=== PATIENT | female | born 1990 | race Caucasian/White ===

== ENCOUNTER 2020-12-02 11:18 | Emergency (ER) | payer OTHER, SELFPAY ==
[2020-12-02 11:35] VITALS: BP 133/83; PULSE 70; RESP 18; TEMP 36.4; O2SAT 100; BMI 44.1
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
[2020-12-02] MEDS: Cyclobenzaprine HCl 10 MG TABLET PO (12:17)
[2020-12-02] MEDS: Acetaminophen 325 MG TABLET 975 MG PO (12:18)
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
[2020-12-02 12:28] LABS: Glucose Urine UA NEG (NEG); Leukocyte Esterase Urine NEG (NEG); Nitrite Urine POS (NEG); PH 7.5 (5.0-8.0); Specific Gravity - Urine 1.015 (1.005-1.025); Urine Blood TRACE (NEG); Urine Ketones NEG (NEG); Urine Protein TRACE MG/DL (NEG-TRACE)
[2020-12-02 12:45] LABS: Appearance Urine HAZY; Color Urine YELLOW
[2020-12-02 12:54] LABS: Amorphous Sediment Urine TRACE /LPF; Bacteria Urine 3+ /LPF; Mucus Urine 2+ /LPF; RBC Urine 0 /HPF (0); Squamous Epithelial Cell Urine 2+ /LPF
[2020-12-02 12:55] LABS: UPreg QC Valid YES; Urine Pregnancy NEGATIVE (NEGATIVE)
== END 2020-12-02 14:22 | disposition home or self-care (01) ==
PROVIDERS: Physician Assistant Medical; Emergency Provider Emergency Medicine Emergency Medical Services
DX: S13.120A Subluxation of C1/C2 cervical vertebrae, initial encounter (principal); S06.0X0A Concussion without loss of consciousness, initial encounter; S29.011A Strain of muscle and tendon of front wall of thorax, initial encounter; M25.512 Pain in left shoulder; N30.00 Acute cystitis without hematuria; M54.2 Cervicalgia; G44.319 Acute post-traumatic headache, not intractable; G44.309 Post-traumatic headache, unspecified, not intractable; R07.89 Other chest pain; V43.52XA Car driver injured in collision with other type car in traffic accident, initial encounter; Y93.9 Activity, unspecified; Y92.410 Unspecified street and highway as the place of occurrence of the external cause; Y99.9 Unspecified external cause status; Z79.899 Other long term (current) drug therapy
CPT/HCPCS: 70450; 71046; 72125; 73030; 81001; 81025; 87086; 99284

== ENCOUNTER 2022-09-25 10:46 | Outpatient (REF) | payer OTHER, SELFPAY ==
[2022-09-25 10:55] LABS: MANUAL DIFF FLAG NO
[2022-09-25 11:34] LABS: Basophils Percent Auto 0.3 % (0-2); Eosinophils Absolute Auto 0.2 X10*3/uL (0.0-0.4); Eosinophils Percent Auto 2.8 % (0-4); Hematocrit 34.9 % (37.0-47.0); Hemoglobin 11.5 g/dl (12.0-16.0); Imm Gran Abs Auto 0.01 X10*3/uL (0.00-0.03); Imm Gran Pct Auto 0.1 % (0.0-0.4); Lymphocytes Absolute Auto 1.8 X10*3/uL (1.2-4.9); Lymphocytes Percent Auto 24.5 % (20-40); Mean Corpuscular Hemoglobin 28.3 pg (27.0-33.0); Mean Corpuscular Volume 85.7 fL (80.0-98.0); Mean Platelet Volume 9.8 fL (9.4-12.3); Monocytes Absolute Auto 0.6 X10*3/uL (0.1-1.2); Monocytes Percent Auto 8.4 % (2-11); Neutrophils Absolute Auto 4.8 x10*3/uL (2.0-8.3); Neutrophils Percent Auto 63.9 % (45-73); Platelet Count 290 X10*3/uL (160-400); Red Blood Count 4.07 X10*6/uL (4.20-5.50); Red Cell Distribution Width 13.1 % (11.0-16.0); White Blood Count 7.5 X10*3/uL (4.8-10.8)
[2022-09-25 12:09] LABS: Alanine Aminotransferase 21 U/L (0-31); Alkaline Phosphatase 61 U/L (39-117); Anion Gap 14 (12-20); Aspartate Amino Transferase 23 U/L (5-31); Bilirubin Total 0.4 mg/dL (0.0-1.0); Blood Urea Nitrogen 14 mg/dL (9-16); Calcium 8.9 mg/dL (8.4-10.2); Carbon Dioxide 24 mmol/L (22-29); Chloride 108 mmol/L (96-108); Estimated Glomerular Filt Rate > 60; Glucose Fasting 85 mg/dL (60-99); Potassium 4.4 mmol/L (3.3-5.1); Sodium 142 mmol/L (135-145); Total Protein 7.3 g/dL (6.5-8.0)
[2022-09-25 12:34] LABS: TSH reflex Free T4 1.71 uIU/mL (0.32-4.0); Vitamin D 25-OH Total 12.1 ng/mL (>30)
[2022-09-25 12:57] LABS: Folate 8.2 ng/mL (> or = 4.0); Vitamin B12 405 pg/mL (200-900)
== END 2022-09-25 10:47 | disposition home or self-care (01) ==
LOC: HO.LAB 10:46
PROVIDERS: PCP Internal Medicine; Visit Provider Nurse Practitioner Family
DX: Z00.00 Encounter for general adult medical examination without abnormal findings (principal)
CPT/HCPCS: 36415; 80053; 82306; 82607; 82746; 84443; 85025

== ENCOUNTER → 2022-10-16 11:13 | Outpatient (BNVA) | payer OTHER, SELFPAY | PROVIDERS: PCP Internal Medicine; Referring Provider Internal Medicine; Visit Provider Physician Assistant | DX: Z01.818 Encounter for other preprocedural examination (principal); E66.01 Morbid (severe) obesity due to excess calories; D64.9 Anemia, unspecified; Z68.43 Body mass index [BMI] 50.0-59.9, adult | CPT/HCPCS: 99202 ==

== ENCOUNTER 2023-10-02 09:54 | Outpatient (REF) | payer OTHER, SELFPAY ==
[2023-10-04 18:08] LABS: TS Negative Control Passed; TS Panel A 0; TS Panel B 0; TS Positive Control Passed; TSpotTB Negative (Negative)
== END 2023-10-02 09:55 | disposition home or self-care (01) ==
LOC: HO.LAB 09:54
PROVIDERS: PCP Internal Medicine; Visit Provider Internal Medicine
DX: Z11.1 Encounter for screening for respiratory tuberculosis (principal)
CPT/HCPCS: 36415; 86481

== ENCOUNTER 2023-10-23 15:00 | Outpatient (AMB) | payer OTHER, SELFPAY ==
--- NOTE | 2023-10-23 15:02 | A.OFFPC_ITS ---
Vital Signs 10/23/23 15:04 Height 5 ft 8 in Weight 360 lb BMI 54.7 BP 152/80 H Blood Pressure Location Lt brachial Position Sitting Intake Visit Reasons: PE+ NEEDS PHQ9+ THRIVE Intake Note: Patient here for a physical exam Clinical Rn Manager Required: No Accompanied by: Self / Same As Patient Allergies No Known Allergies Allergy (Verified 10/23/23 15:23) Medication List - Last Reconciled 10/23/23 by Yeny Chapa MD [IUD vaginal] Tobacco use date assessed: 10/23/23 Dental Screening Dental Screen Date: 10/23/23 Did you have a dental visit in the last 12 months?: No Did you have a dental problem in the last 6 months where you did not have access to dental care?: No Was dental information given to patient?: Patient has dentist HPI HPI Comments History of Present Illness Details This is a 33-year-old female with morbid obesity that comes for her physical exam. Her BMI is 54.7 and she was and role in weight management but stopped going. I recommend to restarted. She will think about it. Last Pap smear was 2022 at [facility] and was normal. Elevated blood pressure today that will be recheck by nurse navigator in 3 weeks. No chest pain or shortness of breath PFSH Medical History Body rash Tests ordered Physical exam Surgical History Hx of tooth extraction History of section Family History Father No problems noted. Mother No problems noted. Maternal Grandmother Diabetes Breast cancer Social History Housing: Apartment Alcohol intake: current Alcohol intake frequency: a few times a week Patient Tobacco Use Status: Current everyday Tobacco user Tobacco use type: Cigarette Cigarettes Per Day: 4 e-Cigarette/Vaping Use: Never Used Second Hand Smoke Exposure: No service: No Current occupational status: employed Current occupational exposures/hazards: No Cognitive needs: No Hearing needs: No Vision needs: No Questionnaire PHQ-9 Over the last 2 weeks, how often have you been bothered by any of the following problems? 1. Little interest or pleasure in doing things: not at all 2. Feeling down, depressed, or hopeless: not at all 3. Trouble falling or staying asleep, or sleeping too much: not at all 4. Feeling tired or having little energy: not at all 5. Poor appetite or overeating: not at all 6. Feeling bad about yourself - or that you are a failure or have let yourself or your family down: not at all 7. Trouble concentrating on things, such as reading the newspaper or watching television: not at all 8. Moving or speaking so slowly that other people could have noticed. Or the opposite - being so fidgety or restless that you have been moving around a lot more than usual: not at all 9. Thoughts that you would be better off or of hurting yourself in some way: not at all Total score: 0 Depression Screening Interpretation: Negative Depression Screening Done: Yes 16338 - PHQ-9 Billing: Yes Source: Developed by Drs. Glynn Huffman, Nena Craft, Marquis Ram and colleagues, with an educational dane from [employer] Thrive Questionnaire Date Thrive assessed: 10/23/23 I am a: Patient What is your living situation today?: I have a steady place to live Within the past 12 months, did the food you bought not last and you didn't have the money to get more?: Never true Within the past 12 months, did you worry whether your food would run out before you got money to buy more?: Never true Do you have trouble paying for medicines?: No Do you have trouble getting transportation to medical appointments?: No Do you have trouble paying your heating and electricity bill?: No Do you have trouble taking care of your child, family member or friend?: No Do you have trouble with day-to-day activities such as bathing, preparing meals, shopping, managing finances, etc.?: No Are you currently unemployed and looking for a job?: No Are you interested in more education?: No Please select the resources that you would like help with: None Currently or been in a relationship where the following occur: no concerns reported AUDIT C Alcohol Use Questionnaire (AUDIT-C) 1. How often do you have a drink containing alcohol?: 2-3 times a week 2. How many drinks containing alcohol do you have on a typical day when you are drinking?: 3 or 4 3. How often do you have six or more drinks on one occasion?: Never Total Score: 4 Score Reviewed/Action Taken: Yes JINA-7 AMB Questionnaire JINA-7 Date JINA - 7 assessed: 10/23/23 Feeling nervous, anxious, or on edge: 0 = Not at all Not being able to stop or control worryin = Not at all Worrying too much about different things: 0 = Not at all Trouble relaxin = Not at all Being so restless that it is hard to sit still: 0 = Not at all Becoming easily annoyed or irritable: 0 = Not at all Feeling afraid as if something awful might happen: 0 = Not at all Total JINA-7 score (0-4 normal; 5-9 mild; 10-14 moderate; 15-21 severe): 0 Source: Developed by Drs. Glynn Huffman, Nena Craft, Marquis Ram and colleagues, with an educational dane from [employer] JINA-7 Assessment Billing JINA-7 Assessment Tool: JINA-7 Assessment 69665 Review of Systems Const All systems reviewed & are unremarkable except as noted in HPI and below Eyes Reports no additional complaints, Denies change in vision and Denies other visual disturbances Card Denies chest pain at rest, Denies chest pain with activity, Denies edema, Denies irregular heart rhythm, Denies claudication, Denies dyspnea, Denies dyspnea on exertion, Denies orthopnea, Denies paroxysmal nocturnal dyspnea and Denies slow heart rate Resp Denies cough, Denies dyspnea and Denies dyspnea on exertion GI Denies abdominal pain, Denies change in bowel habits, Denies excessive flatus, Denies nausea and Denies vomiting Denies urinary incontinence, Denies urinary hesitancy and Denies urinary urgency Musc Denies abnormal gait, Denies atrophy, Denies deformity and Denies limited range of motion Skin/Breast Denies bleeding lesions, Denies changing lesions and Denies rash Neuro Denies abnormal gait and Denies lack of coordination Tyree/Lymph Denies easy bleeding Physical exam (Primary Care) Vital Signs: Last Vital Signs BP 152/80 H 10/23/23 15:04 BMI result Body Mass Index 54.7 Tobacco/Smoking Status: Tobacco use Status Tobacco use date assessed 10/23/23 10/23/23 15:12 Patient Tobacco Use Status Current everyday Tobacco 10/23/23 15:06 Tobacco use type Cigarette 10/23/23 15:12 e-Cigarette/Vaping Use Never Used 10/23/23 15:06 PHQ-9: PHQ-9 Score PHQ-9: Total score 0 10/23/23 15:39 Depression Screening Interpretation: Negative Thrive Assessment: Date of Thrive Assessment Date Thrive assessed 10/23/23 10/23/23 15:06 Currently or been in a relationship where the following occur: no concerns reported Const Orientation/consciousness: patient oriented x3 HENMT Head: Yes normal to inspection, Yes normocephalic and Yes atraumatic Ears: external ears normal Eyes General: appearance normal, both eyes and all related structures Eyelids: Yes eyelids normal Conjunctivae: conjunctivae normal Neck Neck: Yes normal visual inspection and Yes supple Resp Effort & Inspection: normal respiratory effort Auscultation: clear to auscultation bilaterally Cardio Jugular venous distension: no JVD Rate: regular rate Rhythm: regular rhythm Heart sounds: S1 normal heart sound present and S2 normal heart sound present GI Inspection: Yes normal to inspection Palpation (GI): Soft to palpation and nontender Auscultation: normal bowel sounds Skin General skin exam: no rashes or lesions noted Neuro General: patient oriented x3 and no focal motor deficits Extrem General: Yes full ROM Psych Appearance: grossly normal Office Procedures Flu Questionnaire Does the patient have a severe egg allergy?: No Does the patient have severe life threatening allergies?: No Does the patient have a fever or illness today?: No Has the patient ever had Guillain-Felda Syndrome?: No Has the patient ever had any past reaction to a flu shot?: No Immunizations flu vacc [id number] 6mos up(PF) 60 mcg(15 mcgx4)/0.5 mL IM syringe Performing Provider: Yeny Chapa MD Performing [facility] [place] [facility] Administered by: NAEL Taylor on 10/23/23 15:39 Dose Route Admin Location Dispensed Lot Number Expiration Date NDC Manager Program Management 0.5 mL IM Right Deltoid 0.5 mL [id number] 05/18/24 [id number] [employer] VIS Given Date VIS Provided VIS Publication Date 10/23/23 Single Vaccine 21 Eligibility Eligibility Date Funding Source Not [facility] Eligible 10/23/23 Private Assessment and Plan Assessment & Plan (1) Physical exam: Code(s): Z00.00 - Encounter for general adult medical examination without abnormal findings Plan: Repeat in a year. (2) Morbid obesity with BMI of 50.0-59.9, adult: Code(s): E66.01 - Morbid (severe) obesity due to excess calories; Z68.43 - Body mass index [BMI] 50.0-59.9, adult Plan: Consider returning to weight management. BMI goal is less than 30. Orders: Orders Lipid Panel Today Z00.00 - Encounter for general adult medical examination without abnormal findings Influenza [id number] Immunization Today Z23 - Encounter for immunization Vitamin D 25-OH Total Today E55.9 - Vitamin D deficiency, unspecified Comprehensive [place]. Panel Fast Today Z00.00 - Encounter for general adult medical examination without abnormal findings Coding Level of Care Code Est Pt Prev Care [id number]) Diagnoses Physical exam Z00.00 Morbid obesity with BMI of 50.0-59.9, adult E66.01; Z68.43 Additional Codes JINA-7 Assessment Billing - JINA-7 Assessment Tool: JINA-7 Assessment [id number] ([id number]) Time Spent (min) 33
[2023-10-23 15:04] VITALS: BP 152/80; BMI 54.7
== END 2023-10-23 15:41 | disposition home or self-care (01) ==
PROVIDERS: Visit Provider Internal Medicine
DX: Z00.00 Encounter for general adult medical examination without abnormal findings (principal); E66.01 Morbid (severe) obesity due to excess calories; Z68.43 Body mass index [BMI] 50.0-59.9, adult; Z23 Encounter for immunization
CPT/HCPCS: 90471; 90686; 99395

== ENCOUNTER 2024-01-17 09:01 | Emergency (ER) | payer OTHER, SELFPAY ==
[2024-01-17 09:38] VITALS: BP 149/94; PULSE 76; RESP 20; TEMP 36.8; O2SAT 100; BMI 55.6
--- NOTE | 2024-01-17 10:13 | ECG_ITS ---
Test Reason : HTN Blood Pressure : / mmHG Vent. Rate : 071 BPM Atrial Rate : 071 BPM P-R Int : 192 ms QRS Dur : 094 ms QT Int : 382 ms P-R-T Axes : 016 038 007 degrees QTc Int : 415 ms Normal sinus rhythm Normal ECG No previous ECGs available Referred By: Ted Uriarte Electronically Signed By:QUINTEN MOORE
--- NOTE | 2024-01-17 10:31 | ED_ITS ---
HPI - General Adult General Chief complaint: Headache Stated complaint: High BP, headache Time Seen by Provider: 01/17/24 10:13 Source: patient Mode of arrival: ambulatory Limitations: no limitations History of Present Illness HPI narrative: 33-year-old female history of obesity, anemia, presents to the emergency department with concerns that her blood pressure is high, patient reports she purchase a blood pressure machine for home, she tried it once her blood pressure was 212/138 this was yesterday she took it again today and she thinks it was also elevated. She reports that she went to her primary care provider who advised her to check her blood pressure at home as her blood pressure was borderline high at her PCP appointment, she reports when she saw these values she panicked she started having a headache. She started feeling anxious however she does not have a history of anxiety. She continued to check in it remained high. Today she tells me she is asymptomatic does not have headache, vision changes, dizziness, weakness, nausea, vomiting, abdominal pain. She tells me she has some chest pressure however and she does not know if it is because of anxiety. No shortness of breath. Denies fevers and chills. NIH stroke scale 0. Related Data Home Medications Medication Instructions Recorded Confirmed IUD vaginal 09/25/22 10/23/23 Allergies Allergy/AdvReac Type Severity Reaction Status Date / Time No Known Allergies Allergy Verified 01/17/24 09:38 Review of Systems 2 Review of Systems: Yes all other systems are reviewed and are negative ON LICENSE OF [facility] Past Medical History Attestation statement: The following information was validated with the patient. Source: old records reviewed and nursing notes reviewed Medical History Body rash Tests ordered Physical exam Surgical History Hx of tooth extraction History of section Family History Family History Father No problems noted. Mother No problems noted. Maternal Grandmother Diabetes Breast cancer Social History Social History Housing: Apartment Alcohol intake: current Alcohol intake frequency: a few times a week Patient Tobacco Use Status: Current everyday Tobacco user Tobacco use type: Cigarette Cigarettes Per Day: 4 e-Cigarette/Vaping Use: Never Used Second Hand Smoke Exposure: No Advance Directives: No Advance Directives Information Provided: No service: No Current occupational status: employed Current occupational exposures/hazards: No Cognitive needs: No Hearing needs: No Vision needs: No Physical Exam ED Vital Signs: Vital Signs - 24 hr 01/17/24 09:38 Temperature 98.3 F Pulse Rate 76 Respiratory Rate 20 Blood Pressure 149/94 H Pulse Oximetry 100 Oxygen Delivery Method Room Air BMI result Body Mass Index 55.6 Vital signs stable Appearance: Alert.? Oriented X3.? No acute distress.? Head: Normocephalic, atraumatic, no step-offs or deformities Eyes: Pupils equal, round and reactive to light.? Extraocular movements intact and pain-free ENT: Pharynx normal.? Neck: Normal inspection.? Neck supple.? CVS: Normal heart rate and rhythm.? Pulses normal.? Respiratory: No respiratory distress.? Breath sounds normal.? Skin: Skin warm and dry.? Normal skin color.? Normal skin turgor.? Extremities: No lower extremity edema.? No calf ttp. 5/5 strength to bilateral upper and lower extremities Neuro: Oriented X 3.? No motor deficit.? No sensory deficit. CN 2-12 intact . Normal iqiide-jg-axko, orok-mg-adzo. Steady tandem gait normal coordination Course Reevaluation(s) Reevaluation #1: I personally repeated pressure on left arm blood pressure 140/75. Patient calm and not anxious. Labs pending. Likely disposition home with PCP follow-up. Time: 10:35 Reevaluation #2: Troponin negative. Patient is still feeling well. Educated patient on diagnosis and treatment plan, answered all question, patient verbalizes understanding. At this time patient will be discharged home, advised to return with new or worsening symptoms. Educated on worrisome signs and symptoms and when to return. At this time I feel comfortable discharge home. Time: 11:34 Medical Decision Making Medical Decision Making MDM Narrative: 33-year-old female presents with concerns of high blood pressures at home, and some chest discomfort. On exam patient is slightly anxious. Otherwise unremarkable exam. History and physical exam concerning for possible elevated blood pressure reading that was incorrect at home. Here patient's pressure is just mildly elevated. Consistent with 1 isolated blood pressure elevated reading. Unlikely hypertensive urgency, emergency, stroke, posterior stroke. Chest discomfort likely secondary to anxiety. Unlikely ACS, PE, dissection. Plan EKG, basic labs with troponin. Will repeat pressure. Differential Diagnosis Differential Diagnoses: The differential diagnosis associated with the presentation includes History and physical exam concerning for possible elevated blood pressure reading that was incorrect at home. Here patient's pressure is just mildly elevated. Consistent with 1 isolated blood pressure elevated reading. Unlikely hypertensive urgency, emergency, stroke, posterior stroke. Chest discomfort likely secondary to anxiety. Unlikely ACS, PE, dissection. Admission/Observation Consideration of admission/observation: Escalation of care including admission/observation considered Unlikely Lab Data MDM Lab Attestation statement: I reviewed the patient's lab results. 01/17/24 10:38 01/17/24 10:38 Labs: Lab Results 01/17/24 Range/Units 10:38 WBC 8.2 (4.8-10.8) X10*3/uL RBC 4.43 (4.20-5.50) X10*6/uL Hgb 12.7 (12.0-16.0) g/dl Hct 37.4 (37.0-47.0) % MCV 84.4 (80.0-98.0) fL MCH 28.7 (27.0-33.0) pg MCHC 34.0 (31.0-35.0) g/dl RDW 13.0 (11.0-16.0) % Plt Count 334 (160-400) X10*3/uL MPV 9.2 L (9.4-12.3) fL Immature Gran % (Auto) 0.4 (0.0-0.4) % Neut % (Auto) 71.6 (45-73) % Lymph % (Auto) 16.9 L (20-40) % [place] % (Auto) 8.2 (2-11) % Eos % (Auto) 2.7 (0-4) % Baso % (Auto) 0.2 (0-2) % Lymph # (Auto) 1.4 (1.2-4.9) X10*3/uL [place] # (Auto) 0.7 (0.1-1.2) X10*3/uL Eos # (Auto) 0.2 (0.0-0.4) X10*3/uL Baso # (Auto) 0.0 (0.0-0.2) X10*3/uL Abs Immat Gran (auto) 0.03 (0.00-0.03) X10*3/uL Absolute Neuts (auto) 5.9 (2.0-8.3) x10*3/uL Absolute Nucleated RBC 0.000 (0.0-0.012) X10*3/uL Nucleated RBC % (auto) 0.0 (0.0-0.2) /100WBC Sodium 141 (135-145) mmol/L Potassium 4.3 (3.3-5.1) mmol/L Chloride 109 H (96-108) mmol/L Carbon Dioxide 25 (22-29) mmol/L Anion Gap 11 L (12-20) BUN 8 L (9-16) mg/dL Creatinine 0.76 (0.5-1.4) mg/dL Estim Creat Clear Calc 179.6 Estimated GFR > 60 Random Glucose 102 (60-115) mg/dL Calcium 8.8 (8.4-10.2) mg/dL Total Bilirubin 0.5 (0.0-1.0) mg/dL AST 21 (5-31) U/L ALT 21 (0-31) U/L Alkaline Phosphatase 71 (39-117) U/L Troponin I High Sens < 2.7 (<3.5-17.0) ng/L Total Protein 7.4 (6.5-8.0) g/dL Albumin 4.1 (3.5-5.0) g/dL Independent Interpretation I performed an independent interpretation of an: EKG (Ventricular rate of 71. Normal, QRS normal, QT/QTC normal. No ST elevations or inversions concerning for ischemia) Radiology Impression Discussion of test interpretation with radiology: I have reviewed the radiologist's reading. External Record Review External record reviewed: Inpatient record Chronic Conditions Patient?s care impacted by: Other (Obesity, anemia) Critical Care Time Critical Care Time Critical Care Time: No Discharge Plan Discharge Clinical Impression: Elevated blood pressure reading, Anxiety Patient Disposition: Home, Self-Care Instructions: Anxiety (ED) Additional Instructions: Take your medications as prescribed. If you were prescribed antibiotics today, it is important that you take your medication to their entirety, do not skip any doses, do not finish them early. Follow-up with your primary care provider this week. Return to the emergency department with new or worsening symptoms. Such as fevers, chills, chest pain, shortness of breath, nausea, vomiting, dizziness, headache, vision changes, lethargy In case of emergency call 911 Check your pressure Sunday, Sunday, Sunday, ready down and share with your primary care provider. Prescriptions: No Action IUD vaginal Referrals: Physician,Scott J [Physician] - 1 day Stand Alone Forms: Work/School Release Interventions: ED Discharge Assessment Last Done: 01/17/24 11:30 Discharge Date/Time: 01/17/24 11:32
[2024-01-17 10:51] LABS: MANUAL DIFF FLAG NO
[2024-01-17 10:55] LABS: Basophils Percent Auto 0.2 % (0-2); Eosinophils Absolute Auto 0.2 X10*3/uL (0.0-0.4); Eosinophils Percent Auto 2.7 % (0-4); Hematocrit 37.4 % (37.0-47.0); Hemoglobin 12.7 g/dl (12.0-16.0); Imm Gran Abs Auto 0.03 X10*3/uL (0.00-0.03); Imm Gran Pct Auto 0.4 % (0.0-0.4); Lymphocytes Absolute Auto 1.4 X10*3/uL (1.2-4.9); Lymphocytes Percent Auto 16.9 % (20-40); Mean Corpuscular Hemoglobin 28.7 pg (27.0-33.0); Mean Corpuscular Volume 84.4 fL (80.0-98.0); Mean Platelet Volume 9.2 fL (9.4-12.3); Monocytes Absolute Auto 0.7 X10*3/uL (0.1-1.2); Monocytes Percent Auto 8.2 % (2-11); Neutrophils Absolute Auto 5.9 x10*3/uL (2.0-8.3); Neutrophils Percent Auto 71.6 % (45-73); Platelet Count 334 X10*3/uL (160-400); Red Blood Count 4.43 X10*6/uL (4.20-5.50); White Blood Count 8.2 X10*3/uL (4.8-10.8)
[2024-01-17 11:10] LABS: Alanine Aminotransferase 21 U/L (0-31); Albumin Level 4.1 g/dL (3.5-5.0); Alkaline Phosphatase 71 U/L (39-117); Anion Gap 11 (12-20); Aspartate Amino Transferase 21 U/L (5-31); Bilirubin Total 0.5 mg/dL (0.0-1.0); Blood Urea Nitrogen 8 mg/dL (9-16); Calcium 8.8 mg/dL (8.4-10.2); Carbon Dioxide 25 mmol/L (22-29); Chloride 109 mmol/L (96-108); Creatinine Clr Calc Pharmacy 179.6; Estimated Glomerular Filt Rate > 60; Glucose Random 102 mg/dL (60-115); Potassium 4.3 mmol/L (3.3-5.1); Sodium 141 mmol/L (135-145); Total Protein 7.4 g/dL (6.5-8.0)
[2024-01-17 11:22] LABS: Troponin-I High Sensitivity < 2.7 ng/L (<3.5-17.0)
== END 2024-01-17 11:32 | disposition home or self-care (01) ==
PROVIDERS: Physician Assistant; Emergency Provider Emergency Medicine; PCP Internal Medicine
DX: F41.1 Generalized anxiety disorder (principal); F43.0 Acute stress reaction; R03.0 Elevated blood-pressure reading, without diagnosis of hypertension; Z79.899 Other long term (current) drug therapy
CPT/HCPCS: 36415; 80053; 84484; 85025; 93005; 99283; 99284

== ENCOUNTER → 2024-01-17 10:13 | Outpatient (BNV) | payer OTHER, SELFPAY | PROVIDERS: Emergency Provider Emergency Medicine; PCP Internal Medicine; Visit Provider Internal Medicine | DX: I10 Essential (primary) hypertension (principal) | CPT/HCPCS: 93010 ==

== ENCOUNTER 2024-03-10 15:52 | Outpatient (AMB) | payer OTHER, SELFPAY ==
[2024-03-10 15:52] VITALS: BP 132/88; PULSE 86; TEMP 36.7; O2SAT 98
--- NOTE | 2024-03-10 15:52 | MHC.OFFWIV ---
Intake Vital Signs 03/10/24 15:52 Height 5 ft 9 in BP 132/88 Blood Pressure Location Lt brachial Position Sitting Pulse 86 Pulse Source Pulse Oximeter Temp 98.0 F Temp Source Oral Pulse Oximetry (%) 98 Oxygen Delivery Method Room Air Intake Visit Reasons: EP Headache, dizzy, High BP Intake Note: pt is here for c/o headache, dizziness Patient Tobacco Use Status: Current everyday Tobacco user Allergies No Known Allergies Allergy (Verified 03/10/24 15:53) Do you need a note to return to daycare/school/sports/work: Yes HPI EP Headache, dizzy, High BP HPI Details 33 yr old female presents to the office for a sick visit. Pt reports, over the weekend she was recording elevated BP. Did not bring in the actual readings. Claims the systolic pressure was as high as 200. Associated headaches and dizziness. History of elevated BP. PCP had asked her to monitor BP but no medication was started. [facility] Medical History Body rash Tests ordered Physical exam Surgical History Hx of tooth extraction History of section Family History Father No problems noted. Mother No problems noted. Maternal Grandmother Diabetes Breast cancer Social History Housing: Apartment Alcohol intake: current Alcohol intake frequency: a few times a week Patient Tobacco Use Status: Current everyday Tobacco user Tobacco use type: Cigarette Cigarettes Per Day: 4 e-Cigarette/Vaping Use: Never Used Second Hand Smoke Exposure: No service: No Current occupational status: employed Current occupational exposures/hazards: No Cognitive needs: No Hearing needs: No Vision needs: No Physical Exam Vital Signs: Last Vital Signs Temp 98.0 F 03/10/24 15:52 Pulse 86 03/10/24 15:52 BP 132/88 03/10/24 15:52 Pulse Ox 98 03/10/24 15:52 Oxygen Delivery Method Room Air 03/10/24 15:52 Const General: cooperative and healthy appearing Nutritional Appearance: well nourished Orientation/consciousness: patient oriented x3 Limitations: no limitations HEENT Head: Yes normal to inspection Eyes General: appearance normal, both eyes and all related structures Neck Neck: Yes normal visual inspection Chest Chest palpation & inspection: normal palpation of entire chest wall Resp Effort & Inspection: normal respiratory effort Neuro General: patient oriented x3 Assessment & Plan Assessment & Plan (1) Elevated blood pressure reading in office without diagnosis of hypertension: Code(s): R03.0 - Elevated blood-pressure reading, without diagnosis of hypertension Plan: HCTZ started at 25 mg a day. Advised to follow up with PCP. Pt has agreed. Coding Level of Care Code Est Pt Level 3 (09059) Diagnoses Elevated blood pressure reading in office without diagnosis of hypertension R03.0
== END 2024-03-10 16:20 | disposition home or self-care (01) ==
PROVIDERS: PCP Internal Medicine; Visit Provider Internal Medicine
DX: R03.0 Elevated blood-pressure reading, without diagnosis of hypertension (principal)
CPT/HCPCS: 99213

== ENCOUNTER 2024-09-02 10:34 | Outpatient (AMB) | payer OTHER, SELFPAY ==
--- NOTE | 2024-09-02 10:42 | A.OFFPC_ITS ---
Vital Signs 09/02/24 10:47 Height 5 ft 9 in Weight 363 lb BMI 53.6 BP 126/78 Blood Pressure Location Lt brachial Position Sitting Pulse 78 Pulse Source Pulse Oximeter Pulse Oximetry (%) 98 Oxygen Delivery Method Room Air Intake Visit Reasons: rash on body Intake Note: Pt is here for itchy rash all over body for the past two weeks. Teaching Manager Required: No Accompanied by: Self / Same As Patient Allergies No Known Allergies Allergy (Verified 09/02/24 10:54) Medication List - Last Reconciled 09/02/24 by Yeny Chapa MD hydrochlorothiazide 25 mg PO DAILY [IUD vaginal] Tobacco use date assessed: 09/02/24 Dental Screening Dental Screen Date: 09/02/24 Did you have a dental visit in the last 12 months?: Yes Did you have a dental problem in the last 6 months where you did not have access to dental care?: No Was dental information given to patient?: Patient has dentist HPI HPI Comments History of Present Illness Details This is a 34-year-old female with essential hypertension and morbid obesity that complains of a body rash that started 2 weeks ago involving trunk and back as well as legs. It is maculopapular pruritic. She denies any recent travel. Denies new foods, closing or detergent. Has a cat for over 6 months. Will give her prednisone and antihistamines and if this does not work she is aware she has to call us back. Blood pressure has been stable. She is a smoker and was advised to quit. She is morbidly obese with a BMI of 53.6 and was advised to do diet and exercise to reach BMI goal less than 30. COUNT INCLUDES THE [facility] Medical History (Updated 09/02/24 @ 12:19 by Yeny Chapa MD) Body rash Tests ordered Physical exam Surgical History Hx of tooth extraction History of section Family History Father No problems noted. Mother No problems noted. Maternal Grandmother Diabetes Breast cancer Social History Housing: Apartment Alcohol intake: current Alcohol intake frequency: a few times a week Patient Tobacco Use Status: Current everyday Tobacco user Tobacco use type: Cigarette Cigarettes Per Day: 8 e-Cigarette/Vaping Use: Never Used Second Hand Smoke Exposure: No service: No Current occupational status: employed Current occupational exposures/hazards: No Cognitive needs: No Hearing needs: No Vision needs: No Questionnaire PHQ-9 Over the last 2 weeks, how often have you been bothered by any of the following problems? 1. Little interest or pleasure in doing things: nearly every day 2. Feeling down, depressed, or hopeless: more than half the days 3. Trouble falling or staying asleep, or sleeping too much: nearly every day 4. Feeling tired or having little energy: nearly every day 5. Poor appetite or overeating: more than half the days 6. Feeling bad about yourself - or that you are a failure or have let yourself or your family down: more than half the days 7. Trouble concentrating on things, such as reading the newspaper or watching television: not at all 8. Moving or speaking so slowly that other people could have noticed. Or the opposite - being so fidgety or restless that you have been moving around a lot more than usual: not at all 9. Thoughts that you would be better off or of hurting yourself in some way: not at all Total score: 15 Depression Screening Interpretation: Positive (no suicidal thoughts) Depression Screening Follow-up: Existing condition and Follow-up Visit Requested Depression Screening Done: Yes 80654 - PHQ-9 Billing: Yes Source: Developed by Drs. Glynn Huffman, Nena Craft, Marquis Ram and colleagues, with an educational dane from [employer]. Thrive Questionnaire Date Thrive assessed: 09/02/24 I am a: Patient What is your living situation today?: I have a steady place to live Within the past 12 months, did the food you bought not last and you didn't have the money to get more?: Never true Within the past 12 months, did you worry whether your food would run out before you got money to buy more?: Never true Do you have trouble paying for medicines?: No Do you have trouble getting transportation to medical appointments?: No Do you have trouble paying your heating and electricity bill?: No Do you have trouble taking care of your child, family member or friend?: No Do you have trouble with day-to-day activities such as bathing, preparing meals, shopping, managing finances, etc.?: No Are you currently unemployed and looking for a job?: I choose not to answer this question Are you interested in more education?: No Please select the resources that you would like help with: None Currently or been in a relationship where the following occur: No concerns reported THRIVE Score: 0 AUDIT C Alcohol Use Questionnaire (AUDIT-C) 1. How often do you have a drink containing alcohol?: Monthly or less 2. How many drinks containing alcohol do you have on a typical day when you are drinking?: 3 or 4 3. How often do you have six or more drinks on one occasion?: Never Total Score: 2 Score Reviewed/Action Taken: No JINA-7 AMB Questionnaire JINA-7 Date JINA - 7 assessed: 09/02/24 Feeling nervous, anxious, or on edge: 3 = Nearly every day Not being able to stop or control worryin = More than half the days Worrying too much about different things: 2 = More than half the days Trouble relaxin = More than half the days Being so restless that it is hard to sit still: 0 = Not at all Becoming easily annoyed or irritable: 2 = More than half the days Feeling afraid as if something awful might happen: 0 = Not at all Total JINA-7 score (0-4 normal; 5-9 mild; 10-14 moderate; 15-21 severe): 11 Source: Developed by Drs. Glynn Huffman, Nena Craft, Marquis Ram and colleagues, with an educational dane from [employer]. JINA-7 Assessment Billing JINA-7 Assessment Tool: JINA-7 Assessment 94844 Review of Systems Const All systems reviewed & are unremarkable except as noted in HPI and below Card Denies chest pain at rest, Denies chest pain with activity, Denies edema, Denies irregular heart rhythm, Denies claudication, Denies dyspnea, Denies dyspnea on exertion, Denies orthopnea, Denies paroxysmal nocturnal dyspnea and Denies slow heart rate Resp Denies cough, Denies dyspnea and Denies dyspnea on exertion Neuro Denies lack of coordination Physical exam (Primary Care) Vital Signs: Last Vital Signs Pulse 78 09/02/24 10:47 BP 126/78 09/02/24 10:47 Pulse Ox 98 09/02/24 10:47 Oxygen Delivery Method Room Air 09/02/24 10:47 BMI result Body Mass Index 53.6 BMI Assessment/Plan discussion: High BMI High, discussed plan: lifestyle, weight reduction, dietary and physical activity Tobacco/Smoking Status: Tobacco use Status Tobacco use date assessed 09/02/24 09/02/24 10:52 Patient Tobacco Use Status Current everyday Tobacco 09/02/24 10:42 Tobacco use type Cigarette 09/02/24 10:42 e-Cigarette/Vaping Use Never Used 09/02/24 10:42 Are you ready to quit: Yes Tobacco cessation counseling provided: Yes Items discussed: Nicotine replacement and QuitWorks Relapse Prevention: discussed the importance of a supportive environment, discussed extending NRT, discussed negative mood or depression after quitting, weight gain after smoking is common and discussed dietary, exercise and/or lifestyle changes Number of minutes spent counselin CPT code: 12907 - 4-10 Minutes PHQ-9: PHQ-9 Score PHQ-9: Total score 15 09/02/24 11:07 Depression Screening Interpretation: Positive (no suicidal thoughts) Depression Screening Follow-up: Existing condition and Follow-up Visit Requested Thrive Assessment: Date of Thrive Assessment Date Thrive assessed 09/02/24 09/02/24 10:52 Currently or been in a relationship where the following occur: No concerns reported [facility] Head: Yes normal to inspection, Yes normocephalic and Yes atraumatic Ears: external ears normal Eyes General: appearance normal, both eyes and all related structures Eyelids: Yes eyelids normal Conjunctivae: conjunctivae normal Neck Neck: Yes normal visual inspection and Yes supple Resp Effort & Inspection: normal respiratory effort Auscultation: clear to auscultation bilaterally Cardio Jugular venous distension: no JVD Rate: regular rate Rhythm: regular rhythm Heart sounds: S1 normal heart sound present and S2 normal heart sound present GI Inspection: Yes normal to inspection Palpation (GI): Soft to palpation and nontender Auscultation: normal bowel sounds Skin General skin exam: no rashes or lesions noted Neuro General: no focal motor deficits Extrem General: Yes full ROM Psych Appearance: grossly normal Office Procedures Flu Questionnaire Does the patient have a severe egg allergy?: No Does the patient have severe life threatening allergies?: No Does the patient have a fever or illness today?: No Has the patient ever had Guillain-Dar[place] Syndrome?: No Has the patient ever had any past reaction to a flu shot?: No Immunizations Fluarix Triv [id number] (PF) 45 mcg (15 mcg x 3)/0.5 mL IM syringe Performing Provider: Yeny Chapa MD [facility] Administered by: KAIN Fisher on 09/02/24 11:06 Dose Route Admin Location Dispensed Lot Number Expiration Date NDC Manager Personal 0.5 mL IM Left Deltoid 0.5 mL [id number] 05/18/25 [id number] [employer] VIS Given Date VIS Provided VIS Publication Date 09/02/24 Single Vaccine 21 Eligibility Eligibility Date Funding Source Not [facility] Eligible 09/02/24 Private Coding Level of Care Code Est Pt Level 3 (11372) Complex EM visit Add On G2211 Diagnoses Essential hypertension I10 Body rash R21 Morbid obesity with BMI of 50.0-59.9, adult E66.01; Z68.43 Additional Codes JINA-7 Assessment Billing - JINA-7 Assessment Tool: JINA-7 Assessment 42667 ([id number]) Vital Signs *Quality* - CPT code: 48970 - 4-10 Minutes ([id number]) Time Spent (min) 20 Assessment & Plan Assessment & Plan (1) Essential hypertension: Code(s): I10 - Essential (primary) hypertension Category: Medical Plan: Continue hydrochlorothiazide. Blood pressure goal is equal or less than 130/80. (2) Body rash: Code(s): R21 - Rash and other nonspecific skin eruption Category: Medical Plan: Start antihistamines and prednisone pack. (3) Morbid obesity with BMI of 50.0-59.9, adult: Code(s): E66.01 - Morbid (severe) obesity due to excess calories; Z68.43 - Body mass index [BMI] 50.0-59.9, adult Category: Medical Plan: Start diet and exercise. BMI goal is less than 30. Orders: Orders Complete Blood Count Auto Diff Today D64.9 - Anemia, unspecified, E66.01 - Morbid (severe) obesity due to excess calories, Z68.43 - Body mass index [BMI] 50.0-59.9, adult Influenza [id number] Immunization Today Z23 - Encounter for immunization Vitamin D 25-OH Total Today E55.9 - Vitamin D deficiency, unspecified Lipid Panel Today E66.01 - Morbid (severe) obesity due to excess calories, E78.5 - Hyperlipidemia, unspecified, Z68.43 - Body mass index [BMI] 50.0-59.9, adult Comprehensive [place]. Panel Fast Today E66.01 - Morbid (severe) obesity due to excess calories, Z68.43 - Body mass index [BMI] 50.0-59.9, adult Thyroid Stimulating Hormone Today E66.01 - Morbid (severe) obesity due to excess calories, Z68.43 - Body mass index [BMI] 50.0-59.9, adult Medications: New cetirizine (All Day Allergy (cetirizine)) 10 mg PO DAILY PRN 90 tabs 0RF allergy symptoms 90 days prednisone Take 4 tabs for 2 days, then 3 tabs for 2 days, then 2 tabs for 2 days, then 1 tab for 2 days 10 mg PO DIRECTED 20 tabs 0RF 8 days Refilled hydrochlorothiazide 25 mg PO DAILY 30 tabs 0RF
[2024-09-02 10:47] VITALS: BP 126/78; PULSE 78; O2SAT 98; BMI 53.6
== END 2024-09-02 11:06 | disposition home or self-care (01) ==
PROVIDERS: PCP Internal Medicine; Visit Provider Internal Medicine
DX: I10 Essential (primary) hypertension (principal); R21 Rash and other nonspecific skin eruption; E66.01 Morbid (severe) obesity due to excess calories; Z68.43 Body mass index [BMI] 50.0-59.9, adult; Z23 Encounter for immunization

== ENCOUNTER → 2024-09-02 10:34 | Outpatient (BNVA) | payer OTHER, SELFPAY | PROVIDERS: PCP Internal Medicine; Visit Provider Internal Medicine | DX: Z23 Encounter for immunization (principal); I10 Essential (primary) hypertension; R21 Rash and other nonspecific skin eruption; E66.01 Morbid (severe) obesity due to excess calories; Z68.43 Body mass index [BMI] 50.0-59.9, adult; Z71.3 Dietary counseling and surveillance | CPT/HCPCS: 90471; 90656; 96127; 99212 ==

== ENCOUNTER 2024-10-27 14:28 | Outpatient (AMB) | payer OTHER, SELFPAY ==
[2024-10-27 14:37] VITALS: BP 130/86; BMI 54.2
--- NOTE | 2024-10-27 14:37 | MHC.PC.OV ---
Vital Signs 10/27/24 14:37 Height 5 ft 9 in Weight 367 lb BMI 54.2 BP 130/86 Blood Pressure Location Lt brachial Position Sitting Intake Visit Reasons: Annual Exam Intake Note: Patient here for a physical exam Oven Stripper Required: No Accompanied by: Self / Same As Patient Allergies No Known Allergies Allergy (Verified 10/27/24 14:52) Medication List - Last Reconciled 10/27/24 by Yeny Chapa MD cetirizine (All Day Allergy (cetirizine)) 10 mg PO DAILY PRN 90 days hydrochlorothiazide 25 mg PO DAILY [IUD vaginal] triamcinolone acetonide 0.5% 1 appl topical BID 30 days Tobacco use date assessed: 09/02/24 Dental Screening Dental Screen Date: 09/02/24 HPI HPI Comments History of Present Illness Details The patient is a 34-year-old female presenting for an annual physical examination. She reports a cloudy yellowish discharge from the right nipple, which she describes as unusual. There has been no palpable mass, but plans for further investigation with mammography and ultrasound are discussed. The patient also notes a recurrent rash, initially improving, but having flared up again due to the cessation of her topical cream. Additionally, she experiences back pain described as a burning sensation that comes and goes, resembling spasms. Past surgical history includes two sections and a tooth extraction. The patient has a history of obesity with a BMI of 54.2 and hypertension managed with hydrochlorothiazide 25 mg daily. She has allergic rhinitis for which she takes cetirizine 10 mg as needed. The patient has a PHQ-9 score of 5, indicating mild depression, but she is not seeing a mental health professional. While she used to smoke approximately eight cigarettes per day, she is currently reducing her intake and has gone days without smoking. The patient consumes hard liquor several times a week. Her family history is non-contributory with both parents alive and well. - Tetanus, Diphtheria, and Pertussis (Tdap) vaccine administered in 2021; next dose due in 2031. - Pap smears are up to date. - Alcohol consumption reduction counseling offered. - Smoking cessation encouragement provided. - Discussed weight management options, including lifestyle changes and potential pharmacologic interventions. [facility] Medical History Body rash Tests ordered Physical exam Surgical History Hx of tooth extraction History of section Family History Father No problems noted. Mother No problems noted. Maternal Grandmother Diabetes Breast cancer Social History (Updated 10/27/24 @ 14:58 by Yeny Chapa MD) Housing: Apartment Alcohol intake: current Alcohol intake frequency: a few times a week Alcohol type: hard liquor Patient Tobacco Use Status: Current someday Tobacco user Tobacco use type: Cigarette Cigarettes Per Day: 1 e-Cigarette/Vaping Use: Never Used Second Hand Smoke Exposure: No service: No Current occupational status: employed Current occupational exposures/hazards: No Cognitive needs: No Hearing needs: No Vision needs: No Questionnaire PHQ-9 Over the last 2 weeks, how often have you been bothered by any of the following problems? 1. Little interest or pleasure in doing things: several days 2. Feeling down, depressed, or hopeless: several days 3. Trouble falling or staying asleep, or sleeping too much: several days 4. Feeling tired or having little energy: not at all 5. Poor appetite or overeating: more than half the days 6. Feeling bad about yourself - or that you are a failure or have let yourself or your family down: not at all 7. Trouble concentrating on things, such as reading the newspaper or watching television: not at all 8. Moving or speaking so slowly that other people could have noticed. Or the opposite - being so fidgety or restless that you have been moving around a lot more than usual: not at all 9. Thoughts that you would be better off or of hurting yourself in some way: not at all Total score: 5 Depression Screening Interpretation: Positive Depression Screening Follow-up: Existing condition and Follow-up Visit Requested Depression Screening Done: Yes 14991 - PHQ-9 Billing: Yes Source: Developed by Drs. Glynn Huffman, Nena Craft, Marquis Ram and colleagues, with an educational dane from [employer]. Thrive Questionnaire Date Thrive assessed: 09/02/24 I am a: Patient What is your living situation today?: I have a steady place to live Within the past 12 months, did the food you bought not last and you didn't have the money to get more?: Never true Within the past 12 months, did you worry whether your food would run out before you got money to buy more?: Never true Do you have trouble paying for medicines?: No Do you have trouble getting transportation to medical appointments?: No Do you have trouble paying your heating and electricity bill?: No Do you have trouble taking care of your child, family member or friend?: No Do you have trouble with day-to-day activities such as bathing, preparing meals, shopping, managing finances, etc.?: No Are you interested in more education?: No Please select the resources that you would like help with: None Currently or been in a relationship where the following occur: No concerns reported THRIVE Score: 0 AUDIT C Alcohol Use Questionnaire (AUDIT-C) 1. How often do you have a drink containing alcohol?: 2-3 times a week 2. How many drinks containing alcohol do you have on a typical day when you are drinking?: 1 or 2 3. How often do you have six or more drinks on one occasion?: Less than monthly Total Score: 4 JINA-7 AMB Questionnaire JINA-7 Date JINA - 7 assessed: 09/02/24 Feeling nervous, anxious, or on edge: 1 = Several days Not being able to stop or control worryin = Several days Worrying too much about different things: 1 = Several days Trouble relaxin = Several days Being so restless that it is hard to sit still: 2 = More than half the days Becoming easily annoyed or irritable: 1 = Several days Feeling afraid as if something awful might happen: 1 = Several days Total JINA-7 score (0-4 normal; 5-9 mild; 10-14 moderate; 15-21 severe): 8 Source: Developed by Drs. Glynn Huffman, Nena Craft, Marquis Ram and colleagues, with an educational dane from [employer]. JINA-7 Assessment Billing JINA-7 Assessment Tool: JINA-7 Assessment 86299 Review of Systems Const Details: - General: Denies unexpected weight changes. - Endocrine: Reports nipple discharge from right breast. - Musculoskeletal: Reports back pain described as burning and spasmodic. - Dermatologic: Reports recurrence of rash. Physical exam (Primary Care) Vital Signs: Last Vital Signs BP 130/86 10/27/24 14:37 BMI result Body Mass Index 54.2 BMI Assessment/Plan discussion: High BMI High, discussed plan: lifestyle, weight reduction, dietary and physical activity Tobacco/Smoking Status: Tobacco use Status Tobacco use date assessed 09/02/24 10/27/24 14:39 Patient Tobacco Use Status Current everyday Tobacco 10/27/24 14:39 Tobacco use type Cigarette 10/27/24 14:39 e-Cigarette/Vaping Use Never Used 10/27/24 14:39 Are you ready to quit: Yes Tobacco cessation counseling provided: Yes Items discussed: Nicotine replacement and QuitWorks Relapse Prevention: discussed the importance of a supportive environment, discussed extending NRT, discussed negative mood or depression after quitting, weight gain after smoking is common and discussed dietary, exercise and/or lifestyle changes Number of minutes spent counselin CPT code: 61000 - 4-10 Minutes PHQ-9: PHQ-9 Score PHQ-9: Total score 5 10/27/24 14:39 Depression Screening Interpretation: Positive Depression Screening Follow-up: Existing condition and Follow-up Visit Requested Thrive Assessment: Date of Thrive Assessment Date Thrive assessed 09/02/24 10/27/24 14:39 Currently or been in a relationship where the following occur: No concerns reported Const Other: General: Cooperative, healthy appearing, comfortable, no acute distress and well developed Orientation: Patient oriented x3 Limitations: No limitations Head: Normal to inspection Ears: Hearing grossly normal bilaterally Nose: Normal external nose present Face and sinus: Normal facial exam Eyes: Appearance normal, both eyes and all related structures Neck: Normal visual inspection and Yes full ROM Respiratory: Normal respiratory effort and able to speak in complete sentences. Clear to auscultation bilaterally Breasts: No mass palpated, no pain, no discharge. Cardiovascular: Regular rate and rhythm. Normal S1 and S2 GI: Normal to inspection. Soft to palpation and nontender Skin: Rash present, patient reports rash was going away but is now returning Neuro: Patient oriented x3 Extremities: Normal to inspection Coding Level of Care Code Est Pt Level 3 (08115) Est Pt Prev Care 18-39y(68888) Diagnoses Physical exam Z00.00 Morbid obesity with BMI of 50.0-59.9, adult E66.01; Z68.43 Discharge from right nipple N64.52 Additional Codes PHQ-9 - 69601 - PHQ-9 Billing: Yes ([id number]) JINA-7 Assessment Billing - JINA-7 Assessment Tool: JINA-7 Assessment 58349 ([id number]) Vital Signs *Quality* - CPT code: 87395 - 4-10 Minutes ([id number]) Time Spent (min) 35 Assessment & Plan Assessment & Plan (1) Physical exam: Code(s): Z00.00 - Encounter for general adult medical examination without abnormal findings Category: Medical (2) Morbid obesity with BMI of 50.0-59.9, adult: Code(s): E66.01 - Morbid (severe) obesity due to excess calories; Z68.43 - Body mass index [BMI] 50.0-59.9, adult Category: Medical (3) Discharge from right nipple: Code(s): N64.52 - Nipple discharge Category: Medical Plan - For allergic rhinitis: Continue cetirizine 10 mg as needed. - For essential hypertension: Continue hydrochlorothiazide 25 mg daily. - For obesity: Discussed weight management programs, lifestyle modifications, and pharmacological options. Consider initiation of weight loss injections pending insurance approval and blood work results. - For nipple discharge: Order mammogram and ultrasound to assess for underlying pathology. - For depression: No current treatment; encourage monitoring and consider referral if symptoms persist or worsen. - For back pain: Recommend monitoring and supportive care, consider further evaluation if persistent. - For rash: Renew prescription for topical cream. - For smoking cessation: Continue reduction efforts with support and prepare for potential cessation programs. Patient was informed and verbally consented to the use of an ambient scribe for clinic note documentation during this visit. During the consultation, we discussed various management options for her weight, including lifestyle modifications and pharmacological interventions. I emphasized the importance of comprehensive weight management programs that integrate dietary and exercise education for sustainable change. The patient was informed about the risks and benefits of weight loss injections, which may support cardiovascular and metabolic health, noting the necessity of blood work prior to initiation. I recommended exploration into local weight management programs and reassured her that such programs offer long-term support. We also reviewed the potential necessity of a mammogram and ultrasound in light of her nipple discharge to exclude pathologic causes. We addressed smoking cessation, acknowledging her progress in reducing intake and the benefits of continuing such efforts. Orders: Orders Lipid Panel Today E66.01 - Morbid (severe) obesity due to excess calories, Z68.43 - Body mass index [BMI] 50.0-59.9, adult Thyroid Stimulating Hormone Today E66.01 - Morbid (severe) obesity due to excess calories, Z68.43 - Body mass index [BMI] 50.0-59.9, adult Complete Blood Count Auto Diff Today E66.01 - Morbid (severe) obesity due to excess calories, Z68.43 - Body mass index [BMI] 50.0-59.9, adult MM diagnostic mammo BI Today N64.52 - Nipple discharge US breast RT complete Today N64.52 - Nipple discharge Comprehensive [place]. Panel Fast Today E66.01 - Morbid (severe) obesity due to excess calories, Z68.43 - Body mass index [BMI] 50.0-59.9, adult Medications: New semaglutide (weight loss) (Wekaylavsusan) administer weeks 1 through 4 of therapy 0.25 mg (0.5 mL) subcut QWEEK 4 weeks 2 mL 0RF E66.01 - Morbid (severe) obesity due to excess calories, I10 - Essential (primary) hypertension, Z68.43 - Body mass index [BMI] 50.0-59.9, adult Refilled triamcinolone acetonide 0.5% 1 appl topical BID 30 days 15 grams 0RF Patient Instructions: - Continue taking cetirizine 10 mg as needed for allergies. - Maintain current hypertension treatment with hydrochlorothiazide 25 mg daily. - Consider engaging in weight management program and lifestyle modifications; follow up on potential weight loss pharmacotherapy. - Monitor right breast discharge; attend scheduled mammogram and ultrasound. - Resume use of prescribed cream for rash. - Pursue efforts toward smoking cessation. - Monitor back pain and seek further medical evaluation if symptoms persist or worsen.
== END 2024-10-27 15:10 | disposition home or self-care (01) ==
PROVIDERS: PCP Internal Medicine; Visit Provider Internal Medicine
DX: Z00.00 Encounter for general adult medical examination without abnormal findings (principal); E66.01 Morbid (severe) obesity due to excess calories; Z68.43 Body mass index [BMI] 50.0-59.9, adult; N64.52 Nipple discharge; F17.210 Nicotine dependence, cigarettes, uncomplicated

== ENCOUNTER → 2024-10-27 14:28 | Outpatient (BNVA) | payer OTHER, SELFPAY | PROVIDERS: PCP Internal Medicine; Visit Provider Internal Medicine | DX: Z00.00 Encounter for general adult medical examination without abnormal findings (principal); E66.01 Morbid (severe) obesity due to excess calories; Z68.43 Body mass index [BMI] 50.0-59.9, adult; N64.52 Nipple discharge; F17.200 Nicotine dependence, unspecified, uncomplicated; Z71.3 Dietary counseling and surveillance; Z71.6 Tobacco abuse counseling | CPT/HCPCS: 96127; 99212; 99395 ==

== ENCOUNTER 2024-11-04 18:56 | Emergency (ER) | payer OTHER, SELFPAY ==
--- NOTE | ~2024-11-04 | XR_ITS ---
EXAMINATION: XR HAND/WRIST, RIGHT CLINICAL INFORMATION: punched glass COMPARISON: None available. TECHNIQUE: PA, lateral, and oblique views of the right hand and wrist. FINDINGS: The bones and soft tissues are normal. No fracture. Alignment is anatomic. Joint spaces are maintained. No erosions or soft tissue calcifications. XR/XR hand wrist RT IMPRESSION: Normal radiographs of the hand and wrist. Electronically signed by: Dre Mayes MD 11/04/2024 08:39 PM EST RP
[2024-11-04 19:03] VITALS: BP 152/95; PULSE 86; RESP 18; TEMP 36.6; O2SAT 99; BMI 40.6
--- NOTE | 2024-11-04 19:08 | ED_ITS ---
HPI - General Adult General Chief complaint: Wound/Laceration Stated complaint: rt hand wound Time Seen by Provider: 11/04/24 22:04 Source: patient Limitations: no limitations History of Present Illness ED Provider: Duong Schwartz PA-C HPI narrative: 34-year-old female with a history of obesity, hypertension, anemia presents with right wrist injury. Patient states she ?punched a mirror, subsequently lacerating her wrist?. Patient's tetanus vaccine is up-to-date. Related Data Home Medications ?Medication ?Instructions ?Recorded ?Confirmed IUD vaginal 09/25/22 10/27/24 Previous Rx's ?Medication ?Instructions ?Recorded cetirizine 10 mg tablet (All Day 10 mg PO DAILY PRN allergy 09/02/24 Allergy (cetirizine)) symptoms 90 days #90 tabs hydrochlorothiazide 25 mg tablet 25 mg PO DAILY #30 tabs 09/02/24 semaglutide (weight loss) 0.25 0.25 mg (0.5 mL) subcut QWEEK 4 10/27/24 mg/0.5 mL subcutaneous pen weeks #2 mL injector (Wegovy) triamcinolone acetonide 0.5 % 1 appl topical BID 30 days #15 10/27/24 topical cream grams Allergies Allergy/AdvReac Type Severity Reaction Status Date / Time No Known Allergies Allergy Verified 11/04/24 19:06 Review of Systems Review of Systems: Yes all other systems are reviewed and are negative Constitutional: Constitutional: Denies fatigue and Denies fever(s) Musculoskeletal: Musculoskeletal: Denies arthralgias and Denies joint swelling Endocrine: Endocrine: Denies fatigue PMFSH Past Medical History Attestation statement: The following information was validated with the patient. Medical History Body rash Tests ordered Physical exam Surgical History Hx of tooth extraction History of section Family History Family History Father No problems noted. Mother No problems noted. Maternal Grandmother Diabetes Breast cancer Social History Social History (Updated 10/27/24 @ 14:58 by Yeny Chapa MD) Housing: Apartment Unable to assess alcohol history related to: Unknown Alcohol intake: current Alcohol intake frequency: a few times a week Alcohol type: hard liquor Patient Tobacco Use Status: Current someday Tobacco user Tobacco use type: Cigarette Cigarettes Per Day: 1 Smoked in Last 30 Days: No e-Cigarette/Vaping Use: Never Used Second Hand Smoke Exposure: No Use of substances other than those prescribed or required for medical reasons: Unknown Advance Directives: No Advance Directives Information Provided: No Do you have a plan to hurt others: No Plan service: No Current occupational status: employed Current occupational exposures/hazards: No Cognitive needs: No Hearing needs: No Vision needs: No Physical Exam ED Vital Signs: Vital Signs - 24 hr 11/04/24 19:03 11/04/24 22:34 11/05/24 00:05 Temperature 97.8 F 97.9 F 98.4 F Pulse Rate 86 72 71 Respiratory Rate 18 16 16 Blood Pressure 152/95 H 146/84 H 125/65 Pulse Oximetry 99 98 96 Oxygen Delivery Method Room Air Room Air Room Air BMI result Body Mass Index 40.6 Const Other: Alert, well-appearing, joking around with a friend in the room Orientation/consciousness: patient oriented x3 Resp Other: Nonlabored respiration Cardio Other: Normal peripheral perfusion Skin Other: Warm dry no rash Neuro General: patient oriented x3, no focal motor deficits and CN's II-XI intact bilaterally Extrem Other: 4 cm linear laceration noted lateral right wrist with extension across medial wrist, not bleeding. Patient has full range of motion of the wrist and flexion and extension, she also can flex and extend at the MCP PIP DIPJ of each digit. There was no deformity of the hand Psych Other: Calm cooperative Course Course Course Narrative: RME, this is a rapid medical exam performed by Benito Crowell please refer to primary provider for complete H&P- 34-year-old female presents for evaluation of a laceration to her right wrist after punching a glass mirror. She has an about 4 cm curvilinear laceration of the ulnar side of the right wrist. I removed a small shard of glass but there appears to be several specks of glass around the wound as well. Tetanus is up-to-date. Plan for x-ray to evaluate for foreign body/hand fracture Reevaluation(s) Reevaluation #1: Patient left without the benefit of her discharge instructions, I have verbalize them to her, she did not want to wait for the paperwork. Procedures Laceration Laceration 1: Site: hand Side (If applicable): right Size (cm): 4 Description: linear Depth: simple, single layer Local Anesthetic: lidocaine 1% Amount of anesthesia used (mL): 6 Pre-repair: irrigated extensively Skin layer closed with: nylon Size (cm): 3-0 Number of sutures: 8 Technique: simple, interrupted Medical Decision Making Medical Decision Making MDM Narrative: 34-year-old female with a history of obesity, hypertension, anemia presents with right wrist injury. Patient states she ?punched a mirror, subsequently lacerating her wrist?. Patient's tetanus vaccine is up-to-date. No relevant chronic issues History: Per patient I have considered the following differential diagnoses: Fracture, dislocation, laceration Plan: X-ray obtained from triage, no fracture no dislocation, she has a simple laceration that will require Simple repair. I have independently reviewed the following tests: X-ray right wrist/hand: XR/XR hand wrist RT IMPRESSION: Normal radiographs of the hand and wrist. Discharge Plan Discharge Clinical Impression: Laceration of right wrist Patient Disposition: Home, Self-Care Prescriptions: No Action IUD vaginal triamcinolone acetonide 0.5 % cream 1 appl topical BID 30 Days Qty: 15 0RF Wegovy 0.25 mg/0.5 mL pen injector 0.25 mg subcut QWEEK 28 Days Qty: 2 0RF Rx Instructions: administer weeks 1 through 4 of therapy hydrochlorothiazide 25 mg tablet 25 mg PO DAILY Qty: 30 0RF cetirizine [All Day Allergy (cetirizine)] 10 mg tablet 10 mg PO DAILY PRN (Reason: allergy symptoms) 90 Days Qty: 90 0RF Discharge Date/Time: 11/05/24 01:40 Print Language: Yoruba
[2024-11-04 22:34] VITALS: BP 146/84; PULSE 72; RESP 16; TEMP 36.6; O2SAT 98
[2024-11-05 00:05] VITALS: BP 125/65; PULSE 71; RESP 16; TEMP 36.9; O2SAT 96
== END 2024-11-05 01:40 | disposition home or self-care (01) ==
PROVIDERS: Emergency Provider Emergency Medicine; PCP Internal Medicine
DX: S61.411A Laceration without foreign body of right hand, initial encounter (principal); M79.641 Pain in right hand; W25.XXXA Contact with sharp glass, initial encounter; Y93.89 Activity, other specified; Y92.89 Other specified places as the place of occurrence of the external cause; Y99.8 Other external cause status
CPT/HCPCS: 12002; 73110; 73130; 99284

== ENCOUNTER 2024-11-12 13:58 | Emergency (ER) | payer OTHER, SELFPAY ==
[2024-11-12 14:01] VITALS: BP 143/80; PULSE 77; RESP 16; TEMP 36.4; O2SAT 98; BMI 36.5
--- NOTE | 2024-11-12 14:13 | ED.GENADULT ---
HPI - General Adult General Chief complaint: Wound/Laceration Stated complaint: remove stitches Time Seen by Provider: 11/12/24 14:04 Source: patient Mode of arrival: ambulatory Limitations: no limitations History of Present Illness ED Provider: Amol Lyn HPI narrative: 34 yold female presents to the ED for suture removal from right wrist. Sutures were placed over 7 days ago. Patient denies any pus drainage, foul odor, fever, chills, redness, or pain Related Data Home Medications ?Medication ?Instructions ?Recorded ?Confirmed IUD vaginal 09/25/22 10/27/24 Previous Rx's ?Medication ?Instructions ?Recorded cetirizine 10 mg tablet (All Day 10 mg PO DAILY PRN allergy 09/02/24 Allergy (cetirizine)) symptoms 90 days #90 tabs hydrochlorothiazide 25 mg tablet 25 mg PO DAILY #30 tabs 09/02/24 semaglutide (weight loss) 0.25 0.25 mg (0.5 mL) subcut QWEEK 4 10/27/24 mg/0.5 mL subcutaneous pen weeks #2 mL injector ([employer]) triamcinolone acetonide 0.5 % 1 appl topical BID 30 days #15 10/27/24 topical cream grams Allergies Allergy/AdvReac Type Severity Reaction Status Date / Time No Known Allergies Allergy Verified 11/12/24 14:03 Review of Systems Review of Systems: Suture removal Yes all other systems are reviewed and are negative PMFSH Past Medical History Medical History Body rash Tests ordered Physical exam Surgical History Hx of tooth extraction History of section Family History Family History Father No problems noted. Mother No problems noted. Maternal Grandmother Diabetes Breast cancer Social History Social History (Updated 10/27/24 @ 14:58 by Yeny Chapa MD) Housing: Apartment Unable to assess alcohol history related to: Unknown Alcohol intake: current Alcohol intake frequency: a few times a week Alcohol type: hard liquor Patient Tobacco Use Status: Current someday Tobacco user Tobacco use type: Cigarette Cigarettes Per Day: 1 e-Cigarette/Vaping Use: Never Used Second Hand Smoke Exposure: No Advance Directives: No Advance Directives Information Provided: No Do you have a plan to hurt others: No Plan service: No Current occupational status: employed Current occupational exposures/hazards: No Cognitive needs: No Hearing needs: No Vision needs: No Physical Exam ED Vital Signs: Vital Signs - 24 hr 11/12/24 14:01 11/12/24 14:26 Temperature 97.5 F 97.5 F Pulse Rate 77 77 Respiratory Rate 16 16 Blood Pressure 143/80 H 143/80 H Pulse Oximetry 98 98 Oxygen Delivery Method Room Air Room Air BMI result Body Mass Index 36.5 Const General: cooperative, healthy appearing, comfortable, no acute distress, well developed, alert, awake and Physically active Orientation/consciousness: patient oriented x3 [facility] Head: Yes normal to inspection, Yes No palpable skull fracture present, Yes normocephalic and Yes atraumatic Eyes General: appearance normal, both eyes and all related structures Neck Neck: Yes normal visual inspection, Yes full ROM, Yes no lymphadenopathy, Yes no meningeal signs, Yes trachea midline, Yes supple, No anterior neck swelling and No tender Chest Chest palpation & inspection: normal inspection of the chest and normal palpation of entire chest wall Resp Effort & Inspection: normal respiratory effort and able to speak in complete sentences Auscultation: clear to auscultation bilaterally Cardio Jugular venous distension: no JVD Heart sounds: S1 normal heart sound present and S2 normal heart sound present GI Inspection: Yes normal to inspection Palpation (GI): Soft to palpation, not firm, nontender, no guarding and not rigid General: Yes no CVA tenderness Back/Spine/Pelvis Back: no CVA tenderness and No back tenderness Skin General skin exam: no rashes or lesions noted, elasticity normal and turgor normal Neuro General: patient oriented x3, gait normal, tone normal, moves all extremities, Normal light touch and pain sensation, no meningeal signs, no focal motor deficits, CN's II-XI intact bilaterally and normal sensation to monofilament Extrem General: Yes normal to inspection, Yes full ROM and Yes capillary refill normal Hand/finger images: 1. Sutured wound negative for any erythema, pus discharge, foul odor, fever, or chills. Rest of extremity normal. Motor/neuro/vascular exam intact. Negative crepitus or ecchymosis Psych Appearance: grossly normal, well kempt and not disheveled Medical Decision Making Medical Decision Making MDM Narrative: 34-year-old female presents to ED for suture removal from right wrist. Exam negative for signs of infection, compartment syndrome, vascular compromise, or any other life-threatening etiology. Sutures removed. Patient informed to return to the ED for any worrisome signs. Differential Diagnosis Differential Diagnoses: The differential diagnosis associated with the presentation includes (Suture removal) Admission/Observation Consideration of admission/observation: Escalation of care including admission/observation considered Independent Historian Clinical information obtained from an independent historian. History obtained from or confirmed by: Other (patient) External Record Review External record reviewed: Other (prior visits) Discharge Plan Discharge Clinical Impression: Encounter for removal of sutures Patient Disposition: Home, Self-Care Instructions: Stitches Removal (ED) Additional Instructions: Recommend follow up with the primary care provider. Return to the ED immediately for any swelling, redness, pus discharge, foul odor, fever, chills, bluish black discoloration, or any other concerning symptoms. Prescriptions: No Action IUD vaginal triamcinolone acetonide 0.5 % cream 1 appl topical BID 30 Days Qty: 15 0RF Wegovy 0.25 mg/0.5 mL pen injector 0.25 mg subcut QWEEK 28 Days Qty: 2 0RF Rx Instructions: administer weeks 1 through 4 of therapy hydrochlorothiazide 25 mg tablet 25 mg PO DAILY Qty: 30 0RF cetirizine [All Day Allergy (cetirizine)] 10 mg tablet 10 mg PO DAILY PRN (Reason: allergy symptoms) 90 Days Qty: 90 0RF Interventions: ED Discharge Assessment Last Done: 11/12/24 14:26 Discharge Date/Time: 11/12/24 14:27 Print Language: Sudanese
[2024-11-12 14:26] VITALS: BP 143/80; PULSE 77; RESP 16; TEMP 36.4; O2SAT 98
== END 2024-11-12 14:27 | disposition home or self-care (01) ==
PROVIDERS: Emergency Provider Emergency Medicine; PCP Internal Medicine
DX: Z48.02 Encounter for removal of sutures (principal); Z79.899 Other long term (current) drug therapy; F17.210 Nicotine dependence, cigarettes, uncomplicated
CPT/HCPCS: 99282

== ENCOUNTER 2024-12-15 12:09 | Outpatient (REF) | payer OTHER, SELFPAY ==
--- NOTE | ~2024-12-15 | MM_ITS ---
EXAMINATION: MM DIAGNOSTIC DIGITAL BREAST TOMOSYNTHESIS, BILATERAL Limited right breast ultrasound. CLINICAL INFORMATION: Right] white nipple discharge. COMPARISON: Mammography: Comparison is made with relevant prior exams. TECHNIQUE: Digital breast mammography with tomosynthesis is performed in both the craniocaudal and mediolateral oblique views along with computer-aided detection (CAD). Limited right breast ultrasound. FINDINGS: There are scattered areas of fibroglandular density (ACR BI-RADS breast composition Category b). There are no significant masses, abnormal calcifications, or other abnormalities. Targeted color Doppler ultrasound scanning in the right retroareolar region demonstrates normal fibronodular breast tissue. There is no sonographic abnormality to account for the patient's white nipple discharge. Results are provided to the patient at time of visit by the technologist. MM/MM tomosynthesis diagnostic BI IMPRESSION: No mammographic or sonographic abnormality to account for the patient's white nipple discharge. Recommend clinical evaluation and follow-up. If clinical concern persists breast MRI could be considered. ASSESSMENT: BI-RADS BI-RADS 1 - Negative RECOMMENDATION: 1 year F/U This patient's information was entered into a reminder system with a target due date for their next mammogram. Electronically signed by: Flavia Rivas DO 12/15/2024 01:07 PM CESARIO GANN
--- OUTSIDE RECORDS SUMMARY | 2024-12-15 17:02 | XMS_ITS | Encounter Summary ---
Author Organization [facility] Address [address] [place] [phone] Phone Care Team Providers Care Lead Miner Name Role Phone Dede Howell NP Primary Care Provider Geraldine duncan Encounter Details Date Type Department Care Team (Late st Contact Info) Description 07/05/2017 Conversion Encounter [facility] - [address] [id number] Social History Tobacco Use Types Packs/Day Years Used Date Smoking Tobacco: Never Assessed Comments Unknown Sex and Gender Information Value Date Recorded Sex Assigned at Not on file Legal Sex Female 4:23 PM EDT Gender Identity Not on file Sexual Orientation Not on file documented as of this encounter Plan of Treatment Not on file documented as of this encounter Visit Diagnoses Not on filedocumented in this encounter Care Teams Lead Miner Relationship Specialty Start Date End Date Dede Howell NP PCP - General 06/29/17 02/20/23 documented as of this encounter
--- OUTSIDE RECORDS SUMMARY | 2024-12-15 17:02 | XMS_ITS | Clinical Summary ---
Author Organization [facility] Address [address] [place] [id number] Phone Care Team Providers Care Hydraulic Plumber Name Role Phone Unavailable Primary Care Provider Unavailabl e Immunizations Name Administration Dates Next Due DTP 11/29/1994, 3,07/08/1993,01/28,1990 HPV, Quadrivalent 08/21/2007 Hep B, ped/adol 08/31/2004 Hib (PRP-T) 07/08/1993,06/16/1992,01/28/1991 IPV 11/29/1994, 3,07/08/1993,01/28,1990 MMR 08/07/1996,06/16/1992 Meningococcal Conj (Menactra) MCV4P 08/21/2007 Td (adult) (MBL), 2 Lf tetan us toxoid, PF, adsorbed 09/11/2003 Family History Relation Name Status Comments Brother Alive Brother: Health y, Healthy Father Alive Father: Healthy Maternal Grandmother Alive Materna l grandmother: Sudden /[place] under age 55, Hypertension Maternal Great-Grandmother m at great grandma: Diabetes mellitus Mother Mother: Asthma, Asthma, High BP Paternal Grandfather Alive Paterna l uncle: Healthy Social History Tobacco Use Types Packs/Day Years Used Date Smoking Tobacco: Never Assessed Comments Unknown Sex and Gender Information Value Date Recorded Sex Assigned at Not on file Legal Sex Female 4:23 PM EDT Gender Identity Not on file Sexual Orientation Not on file Plan of Treatment Health Maintenance Due Date Last Done Comments Varicella Vaccines (1 of 2 - 13+ 2-dose series) 2003 DTaP,Tdap,and Td Vaccines (6 - Tdap) 09/12/2003 09/11/2003, 11/29/1994, 11/09/1993, Additional history exists Hepatitis B Vaccines (2 of 3 - 3-dose series) 09/28/2004 08/31/2004 Consider Men B Vaccine (1 of 2 - Bexsero 2-dose series) 2006 HPV Vaccines (2 - 3-dose series) 09/18/2007 08/21/2007 Influenza Vaccines (#1) 2024 COVID-19 Vaccine ( season) 2024 HIB Vaccines Completed 07/08/1993, 05/20, 01/28/1991 IPV Vaccines Completed 11/29/1994, 10/20, 07/08/1993, Additional history exists MMR Vaccines Completed 08/07/1996, 06/16/1992 Meningococcal Vaccine Completed 08/21/2007 Hepatitis A Vaccines Aged Out No long er eligible based on patient's age to complete this topic Men B Vaccine Aged Out No longer elig ible based on patient's age to complete this topic Pneumococcal Vaccine Aged Out No long er eligible based on patient's age to complete this topic
--- OUTSIDE RECORDS SUMMARY | 2024-12-15 17:03 | XMS_ITS ---
Demographics Address [address] [facility] [address] [place] [address] Mobile Email Address Preferred Language en Marital Status Unknown Latter Day Affiliation Unknown Race White Ethnic Group or Author Organization [employer] Address [address] [facility] [address] [place], [place] [id number] Care Team Providers Care Blister Pack Operator Name Role Phone MAURICE SOLORZANO Unavailable [phone] Allergies No Known Allergies Results Component Value Reference Range Notes THINPREP PAP TEST, Cervix Reviewed date:04/18/2024 09:35:29 AM Interpretation:Normal Performing Lab:[facility], [address], [place], [address] Sohail Schwartz DO Notes/Report: THINPREP PAP TEST NEGATIVE/BACTERIAL VAGINOSIS NEGATIVE -- THIN PREP PAP TEST -- SEX: F : 1990 AGE: 33 [id number] CLINIC ID: [id number] SS: PHYSICIAN: MAURICE SOLORZANO BEATER TENDER COLLECTED BY: Negative for Intraepithelial Lesion or Malignancy Additional Findings: Endocervical Material Present Shift in Vaginal Trice Suggestive of Bacterial Vaginosis Specimen Adequacy: Satisfactory for Evaluation Previous History: Feb 2023 Negative HPV(Neg) Jan 2022 LSIL HPV(Neg) Jan 2021 LSIL HPV(Pos) Clinical Note: HPV KxaqzcqN78.42 Encounter for cervical smear to confirm findings of recent normal smear following initial abnormal pijnbJ70.51 Encounter for screening for human papillomavirus (HPV), LMP 01-19-2023 Specimen Source: Cervix Visit Type: None Given Performed by: JOSE Portillo (ASCP) Reviewed by: JOSE Ortiz (ASCP) (Electronic Signature 04/17/2024 13:17) HPV HIGH RISK, Cervix Reviewed date:04/17/2024 09:12:53 AM Interpretation:Negative Performing Lab:[facility], [place], [address] Sohail Schwartz DO Notes/Report: HPV HIGH RISK NEGATIVE NEGATIVE HPV High Risk DNA Probe Assay SEX: F : 1990 AGE: 33 [id number] CLINIC ID: [id number] SS: PHYSICIAN: MAURICE SOLORZANO BEATER TENDER COLLECTED BY: Specimen Source: Cervix Specimen Type: ThinPrep Pap Correlating Pap: [id number] Additional High Risk Subtypes* NEGATIVE * Includes 31,33,35,39,45,51,52,56,58, 59,66,68 Subtype 16 NEGATIVE Subtype 18 NEGATIVE REASON FOR VISIT IUD Out, Pap only Medications Medication SIG (Take, Route, Frequency, Duration) Notes Start Date End Date Status Miriam Active Social History Sex Assigned At : Social History Observation Description Sex Assigned At Female Vital Signs Blood pressure systolic 136 mm Hg 04/09/20 24 Blood pressure diastolic 82 mm Hg 024 Height 68 in 04/09/2024 Weight 307 lbs 04/09/2024 BMI 46.67 kg/m2 04/09/2024 Encounters Encounter Location Date Provider Diagnosis [address] [id number] 04/09/2024 MAURICE SOLORZANO Encounter for gynecological examination (general) (routine) without abnormal findings Z01.419 ; Pap - F/U to previous abnormal findings Z01.42 ; HPV Pap Screening Z11.51 and IUD Removal Z30.432 Assessments Encounter Date Diagnosis (ICD Code) Assessment Notes Treatment Notes Treatment Clinical Notes Section Notes 04/09/2024 Encounter for gynecological examination (general) (routine) without abnormal findings (ICD-10 - Z01.419) Spent 20 minutes doing the following: Chart Prep Obtaining/rev iewing history Performing medically necessary exam Counseling/Co ordination of Care Documenting the visit Educating the patient Ordering medication/te st/procedures 04/09/2024 Pap - F/U to previous abnormal findings (ICD-10 - Z01.42) Spent 20 minutes doing the following: Chart Prep Obtaining/rev iewing history Performing medically necessary exam Counseling/Co ordination of Care Documenting the visit Educating the patient Ordering medication/te st/procedures 04/09/2024 HPV Pap Screening (ICD-10 - Z11.51) Spent 20 minutes doing the following: Chart Prep Obtaining/rev iewing history Performing medically necessary exam Counseling/Co ordination of Care Documenting the visit Educating the patient Ordering medication/te st/procedures 04/09/2024 IUD Removal (ICD-10 - Z30.432) IUD removed without difficulty Spent 20 minutes doing the following: Chart Prep Obtaining/rev iewing history Performing medically necessary exam Counseling/Co ordination of Care Documenting the visit Educating the patient Ordering medication/te st/procedures 04/09/2024 Other Spent 20 minutes doing the following: Chart Prep Obtaining/rev iewing history Performing medically necessary exam Counseling/Co ordination of Care Documenting the visit Educating the patient Ordering medication/te st/procedures Plan Of Treatment Treatment Notes Assessment Notes IUD Removal IUD removed without difficulty Next Appt Details Follow Up: 1 Year, Reason: Progress Notes * Enriqueta RODGERS LDOB:[birth year] (33 yo F)Acc No.[id number]:04/09/2024 Progress Note Patient:?Enriqueta RODGERS Quoc Provider:?Maurice Solorzano NP :1990???Age:33 Y???Sex:Female D ate:04/09/2024 Address:[address] [place] [address], [facility] [id number] Subjective: * Chief Complaints: * ???IUD OutPap only * HPI: ???Visit Narrative:?She requests IUD removal for pelvic pain.? Not interested in another method.? Partner will be out of town for 6 months.? Also follow up pap since abnormal 2 years ago. ?Current form of control:?Liletta.?Presenting Symptoms:?no sxs/concerns.?LMP:?01/19/2023.?Last date of UPI:?04/01.?Other Notes for the Clinician:?clt would like bw, ct/gc already done from last visit?.? * ROS:?Vaginal/Breast/ Control FU:?Denies?Missed period(s).?Denies?Painful intercourse.?Denies?Painful menses.?Denies?Vaginal bleeding between periods.?Denies?Vaginal discharge/itching.? * Medical History:? * Car Tracer History:?Abnormal pap sm ear:?Low Grade Squamous Intraepitheliel Lesion (LGSIL).? control:?Liletta intrauterine device, Paragard intrauterine device.?Last menstrual period:?01/19/2023.?Last pap smear date:?02/21/23 NIL, HPV neg; 02/08/2022 LGSIL, Due for f/u02/02/21 LGSIL, pos additional high risk HPV, 02/08/2022 LGSIL, neg HPV , 02/2023.?Menarche:?Age of menarche?11.?Periods:?every month, heavy blood loss.?Sexual activity:?currently sexually active, with men.?Sexually Transmitted Diseases (STDs):?none.?Unprotected sex in the last 5 days?:?yes.?Unprotected sex in the past 10 days?:?yes.? * OB History:?Total pregnancie s:?6.?Total living children:?2.?(s):?1.?Miscarriage(s):?3.?C section(s):?2.? # 1:?Primary .? # 2:?Repeat .? * Surgical History:?c-sections * Hospitalization/Major Diagno stic Procedure:?childbirth * Family History:? No known family history. * Social History:?Food Access:?Food Access?The Client's current access to food is?Secure Food Access.?Housing:?Housing?The client's current living situation is:?stable housing.?Reproductive Life Plan:?Reproductive Life Plan?Do you want to have children??No, I don't want to have children,?How sure are you that you will be able to use your control method without any problems??Very sure,?People's plans change. Is it possible you or your partner could ever decide to become ??No.?Sexual History:?Sexual History?Sexual History Reviewed:?Partners, Practices, Protection/Past STIs,?Currently sexually active??Yes,?Sexually active with:?Men,?Number of male partners?1,?Your sexual activities include:?oral intercourse, vaginal intercourse,?Do you use condoms??No,?Date of last unprotected intercourse:?04/01/2024,?Number of partners in past 3 months:?1,?Number of partners in past year:?1,?Does your partner(s) currently have any STIs??No.?HIV Risk Assessment:?Additional Questions?Is an HIV Risk Assessment being conducted??Yes,?Have you been tested for HIV before??Yes,?If yes, when and where??,?Did you have a blood transfusion prior to 1985??No,?Do you have an unlicensed body piercing or tattoo??No.?PrEP for HIV:?PrEP for HIV?Is the client interested in beginning/continuing PrEP for HIV??No.?Relationships:?Relationships?Has the client experienced any of the following:?Client has never experienced harmful relationships.?Human Trafficking:?Human Trafficking?Experienced:?No.?Tobacco Use:?Tobacco Use?Do you/have you used tobacco??Yes, currently,?Tobacco Smoking Status?Current every day smoker .?Drugs/Alcohol:?Drug/Alcohol Use?Do you or have you used drugs??No,?Do you or have you used alcohol??Yes, currently,?Have you ever had more than 4 (women) or 6 (men) drinks at one time in the past year??Yes.?Counseling Provided:?Counseling Provided?Please indicate the length of time, in minutes, that counseling was provided.?6,?Counseling Was Provided By:?yayo.? * Medications:?India Fuentes edication List reviewed and reconciled with the patientTaking Miriam Medication List reviewed and reconciled with the patient * Allergies:?N.K.D.A.no[Allerg ies Verified] Objective: * Vitals:?BP:136/82mm Hg, Ht: 68 in, Wt:307lbs, BMI:46.67Index, Ht-cm: 172.72, Wt- k.25. * Examination: ???Genitourinary: ?EXTERNAL GENITALIA:?.?VAGINA:?.?BLADDER:?.?URETHRA:?.?CERVIX:?.?UTERUS:?.?ADNEXA:?.?ANUS AND PERINEUM:?.? Assessment: * Assessment: 1.?Encounter for gynecologic al examination (general) (routine) without abnormal findings - Z01.419 (Primary)?2.?Pap - F/U to previous abnormal findings - Z01.42?3.?HPV Pap Screening - Z11.51?4.?IUD Removal - Z30.432? Spent 20 minutes doing the f ollowing: Chart Prep Obtaining/reviewing history Performing medically necessary exam Counseling/Coordination of Care Documenting the visit Educating the patient Ordering medication/test/procedures. Plan: * Treatment: ? Value Reference Range ?THINPREP PAP TEST NEGATIVE/BACTERIAL VAGINOSIS A NEGATIVE - * RADHA PATTERSON 04/18/2024 09:34:1 3 AM EDT > your pap is normal and your HPV screening is negative. I recommend a follow-up pap in 3 years due to your prior abnormal history. Your pap did show a trice shift towards BV (bacterial vaginosis). This is not a diagnostic finding. I don't recommend treatment based on these findings if you are not experiencing symptoms that are suggestive of BV (abnormal discharge with odor). You did not express concerns for symptoms at the time of your visit. Please call if you have concerns for BV symptoms currently. ThanksThis lab was reviewed by RADHA PATTERSON on 04/18/2024 at 09:35 AM EDT ?LAB: HPV HIGH RISK, Cervix (Collection Date & Time - 04/09/2024 11:34 AM)* ? Value Reference Range ?HPV HIGH RISK NEGATIVE NEGATIVE - * MAURICE SOLORZANO V 04/16/2024 11 :04:17 AM EDT >This lab was reviewed by RADHA PATTERSON on 04/17/2024 at 09:12 AM EDT 2.?HPV Pap Screening?LAB: HPV HIGH RISK, Cervix (Collection Date & Time - 04/09/2024 11:34 AM)* ? Value Reference Range ?HPV HIGH RISK NEGATIVE NEGATIVE - * MAURICE SOLORZANO V 04/16/2024 11 :04:17 AM EDT >This lab was reviewed by RADHA PATTERSON on 04/17/2024 at 09:12 AM EDT 3.?IUD Removal? Notes: IUD removed without difficulty?? * Procedure Codes:?83044 IUD R emoval * Follow Up:?1 Year * Billing Information: * Visit Code:? 03069 Existing - Low Complexity (IN USE). * Procedure Codes:? 41956 IUD Removal. * Sign off status: Completed true * Provider:?Maurice Solorzano NP Date:? 024 Generated for Printi ng/Faxing/eTransmitting on:?12/15/2024 05:02 PM EST History and Physical Notes * HPI (History of Present Illness) Category Sub-Category Detail Notes Category Not es Visit Narrative Current form of control: Miriam Presenting Symptoms: no sxs/concerns Other Notes for the Clinician: clt would like bw, ct/gc already done from last visit LMP: 01/19/2023 Last date of UPI: 04/01 Examination Category Sub-Category Detail Notes Category Not es Genitourinary EXTERNAL GENITALIA: External Gen patsy:: normal, no lesions VAGINA: Vagina:: normal appe arance, no abnormal discharge, no lesions BLADDER: Bladder:: no mass, non-tender URETHRA: Urethra:: no erythem a or lesions present CERVIX: Cervix:: no lesions,non-tender,intrauterine device string present UTERUS: Uterus:: not outlined due to body habitus ADNEXA: Adnexa:: no masses, no tendernes s ANUS AND PERINEUM: Anus/Perineum:: visually norm al
--- OUTSIDE RECORDS SUMMARY | 2024-12-15 17:03 | XMS_ITS | Patient Health Record ---
Author Organization [facility] Address [address] [facility] [address] [id number] Care Team Providers Care Visual Merchandising Assistant Name Role Phone MAURICE SOLORZANO Unavailable [phone] Allergies No Known Allergies Results Component Value Reference Range Notes HPV HIGH RISK, Cervix Reviewed date:04/17/2024 09:12:53 AM Interpretation:Negative Performing Lab:[facility], Easi[employer] [place], [address] Sohail Schwartz DO Notes/Report: HPV HIGH RISK NEGATIVE NEGATIVE HPV High Risk DNA Probe Assay SEX: F : 1990 AGE: 33 [id number] CLINIC ID: [id number] SS: PHYSICIAN: MAURICE SOLORZANO CUTTING SUPERVISOR COLLECTED BY: Specimen Source: Cervix Specimen Type: ThinPrep Pap Correlating Pap: [id number] Additional High Risk Subtypes* NEGATIVE * Includes 31,33,35,39,45,51,52,56,58, 59,66,68 Subtype 16 NEGATIVE Subtype 18 NEGATIVE THINPREP PAP TEST, Cervix Reviewed date:04/18/2024 09:35:29 AM Interpretation:Normal Performing Lab:[facility], [facility], [address] Sohail Schwartz DO Notes/Report: THINPREP PAP TEST NEGATIVE/BACTERIAL VAGINOSIS NEGATIVE -- THIN PREP PAP TEST -- SEX: F : 1990 AGE: 33 [id number] CLINIC ID: [id number] SS: PHYSICIAN: MAURICE SOLORZANO CUTTING SUPERVISOR COLLECTED BY: Negative for Intraepithelial Lesion or Malignancy Additional Findings: Endocervical Material Present Shift in Vaginal Jordana Suggestive of Bacterial Vaginosis Specimen Adequacy: Satisfactory for Evaluation Previous History: Feb 2023 Negative HPV(Neg) Jan 2022 LSIL HPV(Neg) Jan 2021 LSIL HPV(Pos) Clinical Note: HPV FnsjfqyC82.42 Encounter for cervical smear to confirm findings of recent normal smear following initial abnormal zgvwiI85.51 Encounter for screening for human papillomavirus (HPV), LMP 01-19-2023 Specimen Source: Cervix Visit Type: None Given Performed by: JOSE Portillo (ASCP) Reviewed by: JOSE Ortiz (ASCP) (Electronic Signature 04/17/2024 13:17) APTIMA COMBO 2 CT/NG, Urine Reviewed date:04/09/2024 01:47:57 PM Interpretation:Negative Performing Lab:[facility], [address], [place], [address] Sohail Schwartz DO Notes/Report: GONORRHEA, AMPLIFIED NEGATIVE NEGATIVE CHLAMYDIA, AMPLIFIED NEGATIVE NEGATIVE DNA Test Results SEX: F : 1990 AGE: 33 [id number] CLINIC ID: [id number] SS: PHYSICIAN: MAURICE SOLORZANO CUTTING SUPERVISOR COLLECTED BY: [id number] Specimen Source: Urine Specimen Type: Urine, Gonsalo PCR Medium Neisseria gonorrhoeae: NEGATIVE Normal Value: Negative Chlamydia trachomatis: NEGATIVE Normal Value: Negative Reason For Referral No Information Medications Medication SIG (Take, Route, Frequency, Duration) Notes Start Date End Date Status Miriam Active Social History Sex Assigned At : Social History Observation Description Sex Assigned At Female Problems Problem Type SNOMED Code ICD Code Onset Dates Problem Status W/U Status Risk Notes Problem Cervicovaginal cytology: Low grade squamous intraepithelial lesion (634003042) Pap Smear - LGSIL (R87.612) Active confirmed Problem Menorrhagia (713989010) Menorrhagia (N92.0) Active confirmed Vital Signs Blood pressure diastolic 82 mm Hg 04/09/2024 Height 68 in 04/09/2024 Blood pressure systolic 136 mm Hg 04/09/2024 Weight 307 lbs 04/09/2024 BMI 46.67 kg/m2 04/09/2024 Encounters Encounter Location Date Provider Diagnosis [address] [id number] 04/02/2024 MAURICE SOLORZANO Encounter for screen ing for infections with a predominantly sexual mode of transmission Z11.3 and General Adult Exam without Abnormal findings Z00.[address] [id number] 04/09/2024 MAURICE SOLORZANO Encounter for gynecological examination (general) (routine) without abnormal findings Z01.419 ; Pap - F/U to previous abnormal findings Z01.42 ; HPV Pap Screening Z11.51 and IUD Removal Z30.432 Assessments Encounter Date Diagnosis (ICD Code) Assessment Notes Treatment Notes Treatment Clinical Notes Section Notes 04/02/2024 Encounter for screening for infections with a predominantly sexual mode of transmission (ICD-10 - Z11.3) 04/02/2024 General Adult Exam without Abnormal findings (ICD-10 - Z00.00) 04/09/2024 Encounter for gynecological examination (general) (routine) [...] visit Educating the patient Ordering medication/te st/procedures 04/02/2024 Other 04/09/2024 Other Spent 20 minutes doing the following: Chart Prep Obtaining/rev iewing history Performing medically necessary exam Counseling/Co ordination of Care Documenting the visit Educating the patient Ordering medication/te st/procedures Plan Of Treatment No Information Insurance Providers Payer Name Payer Address Payer Phone Subscriber Number Group Number Insured Name Patient Relationship to Insured Coverage Start Date Coverage End Date [place] ATT CLAIMS [address] [place] [id number] Enriqueta Rodgers Self - patient is the insured Medical (General) History Medical History History ICD Code Abnormal pap 02/02/21 LGSIL, pos HPV. Col po no biopsies needed high blood pressure Surgical History Surgery Date(Month/Year) c-sections Hospitalization History Reason Date(Month/Year) childbirth
--- OUTSIDE RECORDS SUMMARY | 2024-12-15 17:03 | XMS_ITS ---
Demographics Address [address] [facility] [address] [place] [address] Mobile Email Address Preferred Language en Marital Status Unknown Taoism Affiliation Unknown Race White Ethnic Group or Author Organization [facility] Address [address] [facility] [address] [place], [place] [phone] Care Team Providers Care Solar Energy Advisor Name Role Phone MAURICE SOLORZANO Unavailable [phone] Allergies No Known Allergies Results Component Value Reference Range Notes APTIMA COMBO 2 CT/NG, Urine Reviewed date:04/09/2024 01:47:57 PM Interpretation:Negative Performing Lab:[facility], [address], [place], [address] Sohail Schwartz DO Notes/Report: GONORRHEA, AMPLIFIED NEGATIVE NEGATIVE CHLAMYDIA, AMPLIFIED NEGATIVE NEGATIVE DNA Test Results SEX: F : 1990 AGE: 33 [id number] CLINIC ID: [id number] SS: PHYSICIAN: MAURICE SOLORZANO DEPARTMENT STORE MANAGER COLLECTED BY: [id number] Specimen Source: Urine Specimen Type: Urine, Gonsalo PCR Medium Neisseria gonorrhoeae: NEGATIVE Normal Value: Negative Chlamydia trachomatis: NEGATIVE Normal Value: Negative REASON FOR VISIT Annual Exam, STI Screening Medications Medication SIG (Take, Route, Frequency, Duration) Notes Start Date End Date Status Liletta Active Social History Sex Assigned At : Social History Observation Description Sex Assigned At Female Encounters Encounter Location Date Provider Diagnosis [facility] [address] [place], [place] [phone] 04/02/2024 MAURICE SOLORZANO Encounter for screen ing for infections with a predominantly sexual mode of transmission Z11.3 and General Adult Exam without Abnormal findings Z00.00 Assessments Encounter Date Diagnosis (ICD Code) Assessment Notes Treatment Notes Treatment Clinical Notes Section Notes 04/02/2024 Encounter for screening for infections with a predominantly sexual mode of transmission (ICD-10 - Z11.3) 04/02/2024 General Adult Exam without Abnormal findings (ICD-10 - Z00.00) 04/02/2024 Other Plan Of Treatment Next Appt Details Follow Up: soon, Reason: IUD removal and digital commentator exam/pap Progress Notes * Enriqueta RODGERS LDOB:[birth year] (33 yo F)Acc No.[id number]:04/02/2024 Progress Notes Patient:?Enriqueta RODGERS L Provider:?Maurice Solorzano NP :1990???Age:33 Y???Sex:Female D ate:04/02/2024 Address:[address] [place], [place] [id number] Subjective: * Chief Complaints: * ???Annual ExamSTI Screening * HPI: ???Visit Narrative:?Here for IUD removal..? She has a Liletta IUD since 02/29/24 and has frequent pelvic pain and would like it removed.? She does not want another BC method at this time.? She is due for another pap since abnormal pap 2 years ago, willing to do annual exam today. ?Reason for the visit:?pap f/u/iud check.?Current form of control:?liletta declines new method.?Presenting Symptoms:?extreme cramping.?LMP:?Client can not remember her last period due to IUD. Per clients chart 01/19/23.?Last date of UPI:?04/01/24.?Other Notes for the Clinician:?Clt would like aptima. She does not take any medications.? * Medical History:? * Soft Drink Powder Mixer History:?Abnormal pap sm ear:?Low Grade Squamous Intraepitheliel [...] tested for HIV before??Yes,?If yes, when and where??-2023,?Did you have a blood transfusion prior to [...] minutes, that counseling was provided.?6,?Counseling Was Provided By:?lydper.? * Medications:?TakingLiletta Deepti Pineda DiscontinuedParagard Intrauterine Copper Levonorgestrel 1.5 MG Tablet as directed Orally Cryselle-28 0.3-30 MG-MCG Tablet 1 tablet Orally Once a day Medication List reviewed and reconciled with the patientDiscontinued Paragard Intrauterine Copper Discontinued Levonorgestrel 1.5 MG Tablet as directed Orally Discontinued Cryselle-28 0.3-30 MG-MCG Tablet 1 tablet Orally Once a day Medication List reviewed and reconciled with the patient * Allergies:?N.K.D.A.no[Allerg ies Verified] Objective: * Vitals:? * Examination: ???General Exam: ?CONSTITUTIONAL:?.?NECK/THYROID:?.?RESPIRATORY:?.?CARDIOVASCULAR:?.?BREAST, Right:?.?BREAST, Left:?.?GASTROINTESTINAL:?.?SKIN:?.?NEURO/PSYCH:?.?Genitourinary: ???HAND DEICER ELEMENT WINDER exam was deferred since client had a left thigh cramp when getting in position for digital commentator exam, which did not resolve promptly and she requested another appt. Assessment: * Assessment: 1.?General Adult Exam withou t Abnormal findings - Z00.00 (Primary)?2.?Encounter for screening for infections with a predominantly sexual mode of transmission - Z11.3? Plan: * Treatment: ? Value Reference Range ?GONORRHEA, Amplified NEGATIVE NE GATIVE - * ?CHLAMYDIA, Amplified NEGATIVE NE GATIVE - * MAURICE SOLORZANO V 04/09/2024 01 :47:54 PM EDT >This lab was reviewed by MAURICE SOLORZANO on 04/09/2024 at 13:47 PM EDT * Procedure Codes:?63002 Chlam ydia - Amplified [id number] Gonorrhea - Amplified probe * Follow Up:?soon (Reason: IUD removal and digital commentator exam/pap) * Billing Information: * Visit Code:? 48994 Existing Preventative - Age 18-39 (IN USE). * Procedure Codes:? 12972 Chlamydia - Amplified probe. 43556 Gonorrhea - Amplified probe. * Sign off status: Completed true * Provider:?Maurice Solorzano NP Date:? 024 Generated for Printi ng/Fayuliya/eTransmitting on:?12/15/2024 05:02 PM EST History and Physical Notes * HPI (History of Present Illness) Category Sub-Category Detail Notes Category Not es Visit Narrative Reason for the visit: pap f/u/iud chec k Current form of control: toni leyva new method Presenting Symptoms: extreme cramping Other Notes for the Clinician: Clt would like aptima. She does not take any medications LMP: Client can not remem fan her last period due to IUD. Per clients chart 01/19/23 Last date of UPI: 04/01/24 Examination Category Sub-Category Detail Notes Category Not es General Exam CONSTITUTIONAL: General Appearan ce:: alert, in no acute distress, normal, well nourished NECK/THYROID: Inspection/Palpation:: normal Thyroid:: normal size and shape RESPIRATORY: Auscultation:: clear to ausculta tion bilaterally Respiratory Effort:: normal CARDIOVASCULAR: Auscultation:: regular rate and rhythm GASTROINTESTINAL: Abdomen:: no masses, nontender , nondistended Liver and Spleen:: no hepatomegaly prese nt SKIN: Skin:: normal NEURO/PSYCH: Orientation:: time , place, pers on Mood/Affect:: normal BREAST, Right: Inspection/Palpation :: no discharge, no masses present, no nipple retraction, no skin changes, no skin dimpling, no tenderness, no lymphadenopathy, no axillary mass, no axillary tenderness BREAST, Left: Inspection/Palpation :: no discharge, no masses present, no nipple retraction, no skin changes, no skin dimpling, no tenderness, no lymphadenopathy, no axillary mass, no axillary tenderness Genitourinary HAND DEICER ELEMENT WINDER exam was d eferred since client had a left thigh cramp when getting in position for digital commentator exam, which did not resolve promptly and she requested another appt.
== END 2024-12-15 12:10 | disposition home or self-care (01) ==
LOC: HO.MAMMO 12:09
PROVIDERS: PCP Internal Medicine; Visit Provider Internal Medicine
DX: N64.52 Nipple discharge (principal)
CPT/HCPCS: 76642; 77062; 77066

== ENCOUNTER → 2024-12-15 12:15 | Outpatient (BNV) | payer OTHER, SELFPAY | PROVIDERS: PCP Internal Medicine; Visit Provider Internal Medicine | DX: N64.52 Nipple discharge (principal) | CPT/HCPCS: 76642; 77062; 77066 ==

== ENCOUNTER 2025-04-28 09:58 | Outpatient (AMB) | payer OTHER, SELFPAY ==
--- NOTE | 2025-04-28 10:01 | MHC.PC.OV ---
Vital Signs 04/28/25 10:03 Height 5 ft 8 in Weight 373 lb BMI 56.7 BP 140/80 H Blood Pressure Location Lt brachial Position Sitting Pulse 87 Pulse Source Pulse Oximeter Temp 97.1 F Temp Source Temporal Artery Scan Pulse Oximetry (%) 98 Oxygen Delivery Method Room Air Intake Visit Reasons: bp,depression Intake Note: Patient is here to follow up on BP, Depression. 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: No Communicable Disease Specialist: Not Required per policy Accompanied by: Self / Same As Patient Allergies No Known Allergies Allergy (Verified 04/28/25 10:11) Medication List - Last Reconciled 04/28/25 by Yeny Chapa MD hydrochlorothiazide 25 mg PO DAILY Tobacco use date assessed: 04/28/25 Dental Screening Dental Screen Date: 04/28/25 Did you have a dental visit in the last 12 months?: No Did you have a dental problem in the last 6 months where you did not have access to dental care?: No Was dental information given to patient?: Patient has dentist HPI HPI Comments History of Present Illness Details The patient is a 34-year-old female presenting for follow-up of her chronic conditions, particularly essential hypertension and weight management due to morbid obesity. Her blood pressure was described as borderline, currently managed with hydrochlorothiazide, though she had not taken it on the day of the visit. She experienced a resolved rash attributed to medication. She admits to alcohol consumption, typically 3-4 drinks of hard liquor weekly, and smokes 4-5 cigarettes daily, adjusted by her stress levels. She denies anxiety, depression, or any significant new symptoms like chest pains or shortness of breath. A previous attempt for weight management in 2022 was denied by insurance, but she is willing to explore other options, requesting referral assistance for a preferred facility. [facility] Medical History Body rash Tests ordered Physical exam Surgical History Hx of tooth extraction History of section Family History Father No problems noted. Mother No problems noted. Maternal Grandmother Diabetes Breast cancer Social History Housing: Apartment Unable to assess alcohol history related to: Unknown Alcohol intake: current Alcohol intake frequency: a few times a week Alcohol type: hard liquor Patient Tobacco Use Status: Current everyday Tobacco user Tobacco use type: Cigarette Cigarette Packs Per Day: 0.5 Cigarettes Per Day: 5 e-Cigarette/Vaping Use: Never Used Second Hand Smoke Exposure: Yes service: No Current occupational status: employed Current occupational exposures/hazards: No Cognitive needs: No Hearing needs: No Vision needs: No Questionnaire PHQ-9 Over the last 2 weeks, how often have you been bothered by any of the following problems? 1. Little interest or pleasure in doing things: not at all 2. Feeling down, depressed, or hopeless: not at all 3. Trouble falling or staying asleep, or sleeping too much: not at all 4. Feeling tired or having little energy: not at all 5. Poor appetite or overeating: not at all 6. Feeling bad about yourself - or that you are a failure or have let yourself or your family down: not at all 7. Trouble concentrating on things, such as reading the newspaper or watching television: not at all 8. Moving or speaking so slowly that other people could have noticed. Or the opposite - being so fidgety or restless that you have been moving around a lot more than usual: not at all 9. Thoughts that you would be better off or of hurting yourself in some way: not at all Total score: 0 Depression Screening Interpretation: Negative Depression Screening Done: Yes 41514 - PHQ-9 Billing: Yes Source: Developed by Drs. Glynn Huffman, Nena Craft, Marquis Ram and colleagues, with an educational dane from [employer]. Thrive Questionnaire Date Thrive assessed: 04/28/25 I am a: Patient What is your living situation today?: I have a steady place to live Within the past 12 months, did the food you bought not last and you didn't have the money to get more?: Never true Within the past 12 months, did you worry whether your food would run out before you got money to buy more?: Never true Do you have trouble paying for medicines?: No Do you have trouble getting transportation to medical appointments?: No Do you have trouble paying your heating and electricity bill?: No Do you have trouble taking care of your child, family member or friend?: No Do you have trouble with day-to-day activities such as bathing, preparing meals, shopping, managing finances, etc.?: No Are you currently unemployed and looking for a job?: No Are you interested in more education?: No Please select the resources that you would like help with: None Currently or been in a relationship where the following occur: No concerns reported THRIVE Score: 0 AUDIT C Alcohol Use Questionnaire (AUDIT-C) 1. How often do you have a drink containing alcohol?: 2-4 times a month 2. How many drinks containing alcohol do you have on a typical day when you are drinking?: 1 or 2 3. How often do you have six or more drinks on one occasion?: Never Total Score: 2 JINA-7 AMB Questionnaire JINA-7 Date JINA - 7 assessed: 04/28/25 Feeling nervous, anxious, or on edge: 0 = Not at all Not being able to stop or control worryin = Not at all Worrying too much about different things: 0 = Not at all Trouble relaxin = Not at all Being so restless that it is hard to sit still: 0 = Not at all Becoming easily annoyed or irritable: 0 = Not at all Feeling afraid as if something awful might happen: 0 = Not at all Total JINA-7 score (0-4 normal; 5-9 mild; 10-14 moderate; 15-21 severe): 0 Source: Developed by Drs. Glynn Huffman, Nena Craft, Marquis Ram and colleagues, with an educational dane from [employer]. JINA-7 Assessment Billing JINA-7 Assessment Tool: JINA-7 Assessment 11394 Review of Systems Const All systems reviewed & are unremarkable except as noted in HPI and below Card Denies chest pain at rest, Denies chest pain with activity, Denies edema, Denies irregular heart rhythm, Denies claudication, Denies dyspnea, Denies dyspnea on exertion, Denies orthopnea, Denies paroxysmal nocturnal dyspnea and Denies slow heart rate Resp Denies cough, Denies dyspnea and Denies dyspnea on exertion GI Denies abdominal pain, Denies change in bowel habits, Denies excessive flatus, Denies nausea and Denies vomiting Denies urinary incontinence, Denies urinary hesitancy and Denies urinary urgency Musc Denies atrophy, Denies deformity and Denies limited range of motion Skin/Breast Denies bleeding lesions, Denies changing lesions and Denies rash Physical exam (Primary Care) Vital Signs: Last Vital Signs Temp 97.1 F 04/28/25 10:03 Pulse 87 04/28/25 10:03 BP 140/80 H 04/28/25 10:03 Pulse Ox 98 04/28/25 10:03 Oxygen Delivery Method Room Air 04/28/25 10:03 BMI result Body Mass Index 56.7 BMI Assessment/Plan discussion: High BMI High, discussed plan: lifestyle, weight reduction, dietary and physical activity Tobacco/Smoking Status: Tobacco use Status Tobacco use date assessed 04/28/25 04/28/25 10:09 Patient Tobacco Use Status Current everyday Tobacco 04/28/25 10:09 Tobacco use type Cigarette 04/28/25 10:09 e-Cigarette/Vaping Use Never Used 04/28/25 10:09 PHQ-9: PHQ-9 Score PHQ-9: Total score 0 04/28/25 10:15 Depression Screening Interpretation: Negative Thrive Assessment: Date of Thrive Assessment Date Thrive assessed 04/28/25 04/28/25 10:09 Currently or been in a relationship where the following occur: No concerns reported Resp Effort & Inspection: normal respiratory effort Auscultation: clear to auscultation bilaterally Cardio Jugular venous distension: no JVD Rate: regular rate Rhythm: regular rhythm Heart sounds: S1 normal heart sound present and S2 normal heart sound present Extrem General: Yes full ROM Psych Appearance: grossly normal Coding Level of Care Code Est Pt Level 3 (57816) Complex EM visit Add On G2211 Diagnoses Essential hypertension I10 Morbid obesity with BMI of 50.0-59.9, adult E66.01; Z68.43 Additional Codes JINA-7 Assessment Billing - JINA-7 Assessment Tool: JINA-7 Assessment 28524 ([id number]) PHQ-9 - 90156 - PHQ-9 Billing: Yes ([id number]) Time Spent (min) 19 Assessment & Plan Assessment & Plan (1) Essential hypertension: Code(s): I10 - Essential (primary) hypertension Category: Medical (2) Morbid obesity with BMI of 50.0-59.9, adult: Code(s): E66.01 - Morbid (severe) obesity due to excess calories; Z68.43 - Body mass index [BMI] 50.0-59.9, adult Category: Medical Plan The plan includes continued management of essential hypertension with hydrochlorothiazide, with emphasis on medication adherence. Referral for weight management at the [facility] will address morbid obesity concerns. Routine follow-up blood work is arranged for October, coinciding with the patient's annual physical, to support ongoing health monitoring. There will be an ongoing focus on evaluating the impact of alcohol and tobacco use on her overall health. Patient was informed and verbally consented to the use of an ambient scribe for clinic note documentation during this visit. During the visit, we discussed the patient's borderline elevated blood pressure and its management with hydrochlorothiazide, ensuring she continues with her current regimen despite not taking it on the visit day. The patient expressed interest in revisiting weight management options, upon which I agreed to provide a referral to her preferred [facility] facility. We addressed the implications of her current weight on health, with a straightforward discussion on morbid obesity-related risks. Scheduled blood work for her October physical will further assist in her health evaluation, and attention to lifestyle factors, including tobacco and alcohol consumption, was encouraged for better health outcomes. We aligned on the next steps and agreed on the provisional plans. Orders: Orders Complete Blood Count Auto Diff 6 Months D64.9 - Anemia, unspecified Comprehensive Ona. Panel Fast 6 Months E66.01 - Morbid (severe) obesity due to excess calories, Z68.43 - Body mass index [BMI] 50.0-59.9, adult Vitamin D 25-OH Total 6 Months E55.9 - Vitamin D deficiency, unspecified Vitamin B12 and Folate 6 Months E53.8 - Deficiency of other specified B group vitamins IRON PROFILE 6 Months D64.9 - Anemia, unspecified Lipid Panel 6 Months E66.01 - Morbid (severe) obesity due to excess calories, Z68.43 - Body mass index [BMI] 50.0-59.9, adult Referrals Medical Weight Management Referral E66.01 - Morbid (severe) obesity due to excess calories, Z68.43 - Body mass index [BMI] 50.0-59.9, adult Medications: Refilled hydrochlorothiazide 25 mg PO DAILY 30 tabs 0RF Patient Instructions: - Continue taking hydrochlorothiazide as prescribed. - Expect a referral call for the [facility] weight management facility. - Reduce alcohol consumption when possible. - Limit smoking, especially during high-stress periods. - Prepare for blood work a week before the October. - Maintain regular follow-ups for blood pressure monitoring.
[2025-04-28 10:03] VITALS: BP 140/80; PULSE 87; TEMP 36.2; O2SAT 98; BMI 56.7
--- OUTSIDE RECORDS SUMMARY | 2025-04-28 11:21 | XMS_ITS | Encounter Summary ---
Author Organization [facility] Address [address] [place] [id number] Phone Care Team Providers Care Tire Repairer Name Role Phone Dede Howell NP Primary Care Provider Geraldine duncan Encounter Details Date Type Department Care Team (Late st Contact Info) Description 07/05/2017 Conversion Encounter [facility] - [address] [address] Social History Tobacco Use Types Packs/Day Years [...] on filedocumented in this encounter Care Teams Tire Repairer Relationship Specialty Start Date End Date Dede Howell NP PCP - General 06/29/17 02/20/23 documented as of this encounter
== END 2025-04-28 10:19 | disposition home or self-care (01) ==
LOC: HO.HMCH 09:58
PROVIDERS: PCP Internal Medicine; Visit Provider Internal Medicine
DX: I10 Essential (primary) hypertension (principal); E66.01 Morbid (severe) obesity due to excess calories; Z68.43 Body mass index [BMI] 50.0-59.9, adult

== ENCOUNTER → 2025-04-28 09:58 | Outpatient (BNVA) | payer OTHER, SELFPAY | PROVIDERS: PCP Internal Medicine; Visit Provider Internal Medicine | DX: I10 Essential (primary) hypertension (principal); E66.01 Morbid (severe) obesity due to excess calories; Z68.43 Body mass index [BMI] 50.0-59.9, adult; Z13.31 Encounter for screening for depression; Z13.30 Encounter for screening examination for mental health and behavioral disorders, unspecified | CPT/HCPCS: 96127; 99212 ==